=== PATIENT | male | born 1960 | race Caucasian/White ===

== ENCOUNTER 2018-07-22 19:00 | Emergency (ER) | payer BC ==
--- NOTE | 2018-07-22 19:08 | ER Document Report ---
ED General - General Stated Complaint: WEAKNESS Time Seen by Provider: 07/22/18 19:07 Mode of Arrival: Medic Information source: Patient, Relative Cannot obtain history due to: Intoxicated - HPI Patient complains to provider of: vomiting blood Onset: Other - 58-year-old generally healthy man who presents for evaluation of vomiting coffee ground as well as dark stools over the last day. Is no way that he was previously an alcoholic and had had 2 upper GI bleeds in the past requiring admission and transfusion at outside hospitals who had 5 years been sober and after his mother a month ago began to drink heavily again. He is been binge drinking for the last week and began vomiting blood yesterday. Notes weakness nausea some abdominal pain. Denies any use of blood thinning medication or any other issues. Has not seen a doctor in some time - Related Data Allergies/Adverse Reactions: No Known Allergies Allergy (Verified 08/30/13 16:49) Past Medical History - General Information source: Patient, Relative - Social History Smoking Status: Current Every Day Smoker Smoking Education Provided: Yes Family History: Reviewed & Not Pertinent Pulmonary Medical History: Denies: Hx Tuberculosis Neurological Medical History: Denies: Hx Seizures GI Medical History: Reports: Hx Gastritis, Hx Gastroesophageal Reflux Disease, Hx Pancreatitis Psychiatric Medical History: Reports: Hx Anxiety, Hx Bipolar Disorder, Hx Depression, Hx Post Traumatic Stress Disorder Past Surgical History: Reports: Hx Orthopedic Surgery - Left knee x 2 - Immunizations Hx Diphtheria, Pertussis, Tetanus Vaccination: Yes - 05/14/12 Review of Systems - Review of Systems -: Yes All other systems reviewed and negative Physical Exam - Vital signs Vitals: Temp Pulse BP Pulse Ox 98.6 F 96 140/91 H 98 07/22/18 19:09 07/22/18 19:09 07/22/18 19:09 07/22/18 19:09 Interpretation: Normal - General General appearance: Anxious In distress: Moderate - HEENT Head: Normocephalic Eyes: Normal Conjunctiva: Normal Cornea: Normal Extraocular movements intact: Yes Eyelashes: Normal Pupils: PERRL - Respiratory Respiratory status: No respiratory distress Chest status: Nontender Breath sounds: Normal Chest palpation: Normal - Cardiovascular Rhythm: Regular Heart sounds: Normal auscultation Murmur: No - Abdominal Inspection: Other - Diffuse tenderness, no obvious caput medusa Bowel sounds: Normal - Rectal Stool: Heme positive, Black Hemorrhoids: None - Back Back: Normal - Extremities General upper extremity: Normal inspection, Nontender, Normal color, Normal ROM , Normal temperature General lower extremity: Normal inspection, Nontender, Normal color, Normal ROM , Normal temperature, Normal weight bearing. No: Christine's sign - Neurological Neuro grossly intact: Yes Cognition: Normal Orientation: AAOx4 Mason Coma Scale Eye Opening: Spontaneous Marlo Coma Scale Verbal: Oriented Mason Coma Scale Motor: Obeys Commands Mason Coma Scale Total: 15 Speech: Normal Cranial nerves: Normal Motor strength normal: LUE, RUE, LLE, RLE - Psychological Associated symptoms: Other - Obviously intoxicated Course - Re-evaluation Re-evalutation: 07/22/18 22:14 Here is a 58-year-old male who presents for evaluation of melanotic stools and hematemesis. In the past she had had episodes of GI bleeds never requiring transfusion in the past however did require transfer for endoscopy. He notes that his been drinking for the last week. On examination he is covered in obviously coffee ground emesis which is heme positive as well as melanotic stool caking his undergarment. His heart rate is around 100, his blood pressure is in the normal range. He is obviously intoxicated but otherwise is overall well-appearing. Because I do have a concern for this gentleman having an upper GI bleed we will initiate broad evaluation and management including administration of Protonix bolus and infusion, administration of octreotide, administration of 1 L of normal saline, type and screen CBC CMP alcohol level. Patient's H&H is relatively unchanged from the previous level. Did speak to he and his about the severity of his illness. Patient's alcohol level is greater than 400. Patient has stopped vomiting and having any active episodes of emesis in the emergency department. His abdominal examination is benign. His chemistry is relatively reassuring. His BUN/creatinine ratio is relatively normal. I do have a concern however that this could represent alcoholic gastritis or serious upper GI bleed given that he does have melena as well as coffee-ground emesis. Contacted [facility] physician Dr. Oliva. Dr. Oliva is agreed to evaluate this patient in transfer does note that he is stable at this time with which I agree however we are limited and that we have no gastroenterology coverage this evening or tomorrow. Because there is no gastroenterology coverage for possible intervention in the case of any worsening upper GI bleed believe that this patient would benefit from transport at this time. We will plan for this patient undergo transport to [facility] for evaluation by gastroenterology for his upper and lower GI bleed. We will continue to monitor in emergency department until he is appropriately transition transitioned. We will plan for repeat labs in the morning for assessment of his bleeding. We will plan for the administration of fluids. - Vital Signs Vital signs: Temp Pulse Resp BP Pulse Ox 98.6 F 96 24 H 116/85 93 07/22/18 19:09 07/22/18 19:09 07/22/18 21:00 07/22/18 21:01 07/22/18 21:01 - Laboratory Result Diagrams: 07/22/18 19:22 07/22/18 19:22 Laboratory results interpreted by me: 07/22/18 07/22/18 07/22/18 19:22 19:22 20:21 WBC 14.8 H MCV 78 L MCH 26.0 L RDW 18.3 H Seg Neutrophils % 81.9 H Lymphocytes % 12.5 L Absolute Neutrophils 12.1 H VBG pH 7.46 H Sodium 145.3 H Anion Gap 20 H Creatine Kinase 337 H Serum Alcohol 430 H* Discharge - Discharge Clinical Impression: GI bleed Qualifiers: GI bleed type/associated pathology: unspecified gastrointestinal hemorrhage type Qualified Code(s): K92.2 - Gastrointestinal hemorrhage, unspecified Alcoholic gastritis Qualifiers: Chronicity: unspecified Gastritis bleeding: with bleeding Qualified Code(s): K29.21 - Alcoholic gastritis with bleeding Vomiting Qualifiers: Vomiting type: unspecified Vomiting Intractability: unspecified Nausea presence : unspecified Qualified Code(s): R11.10 - Vomiting, unspecified Condition: Stable Disposition: [facility]
[2018-07-22] MEDS ORDERED: PANTOPRAZOLE SODIUM 40 MG VIAL IV ONE (19:39)
[2018-07-22] MEDS ORDERED: OCTREOTIDE ACETATE INJ/PF 100 MCG/1 ML SDV IV ONE (19:40)
[2018-07-22] MEDS ORDERED: NORMAL SALINE 1000 ML 1,000 ML IV ONE (19:40)
[2018-07-22 19:58] LABS: ABSOLUTE LYMPHOCYTES (AUTO) 1.8 10^3/uL (0.5-4.7); ABSOLUTE MONOCYTES (AUTO) 0.8 10^3/uL (0.1-1.4); ABSOLUTE NEUT (AUTO) 12.1 10^3/uL (1.7-8.2); BASOPHILS % (AUTO) 0.2 % (0-2); EOSINOPHILS % (AUTO) 0.1 % (0-6); HEMATOCRIT 42.7 % (37.9-51.0); HEMOGLOBIN 14.2 g/dL (13.5-17.0); LYMPHOCYTES % (AUTO) 12.5 % (13-45); MEAN CORPUSCULAR HGB CONC 33.3 g/dL (32.0-36.0); MEAN CORPUSCULAR VOLUME 78 fl (80-97); MONOCYTES % (AUTO) 5.3 % (3-13); PLATELET COUNT 367 10^3/uL (150-450); RED BLOOD COUNT 5.47 10^6/uL (4.35-5.55); RED CELL DISTRIBUTION WIDTH 18.3 % (11.5-14.0); SEGMENTED NEUTROPHILS % (AUTO) 81.9 % (42-78); TOTAL CELLS COUNTED % (AUTO) 100 %; WHITE BLOOD COUNT 14.8 10^3/uL (4.0-10.5)
[2018-07-22 19:59] LABS: INTERNATIONAL RATION (INR) 0.89; PROTHROMBIN TIME 12.5 SEC (11.4-15.4)
[2018-07-22 20:00] LABS: PARTIAL THROMBOPLASTIN TIME 33.4 SEC (23.5-35.8)
[2018-07-22 20:11] LABS: ALANINE AMINOTRANSFERASE 33 U/L (21-72); ALBUMIN 4.3 g/dL (3.5-5.0); ALKALINE PHOSPHATASE 75 U/L (38-126); ASPARTATE AMINO TRANSFERASE 43 U/L (17-59); BILIRUBIN,DIRECT 0.2 mg/dL (0.0-0.4); BILIRUBIN,TOTAL 0.4 mg/dL (0.2-1.3); BLOOD UREA NITROGEN 8 mg/dL (7-20); CALCIUM 8.7 mg/dL (8.4-10.2); CREATINE KINASE 337 U/L (55-170); GLUCOSE 105 mg/dL (75-110); LIPASE 256.2 U/L (23-300); TOTAL PROTEIN 7.3 g/dL (6.3-8.2)
--- NOTE | 2018-07-22 20:13 | RADIOLOGY REPORT (SQ) ---
EXAM DESCRIPTION: CHEST SINGLE VIEW COMPLETED DATE/TIME: 07/22/2018 8:05 pm REASON FOR STUDY: aspiration concern COMPARISON: None. EXAM PARAMETERS: NUMBER OF VIEWS: One view. TECHNIQUE: Single frontal radiographic view of the chest acquired. RADIATION DOSE: NA LIMITATIONS: None. FINDINGS: LUNGS AND PLEURA: No opacities, masses or pneumothorax. No pleural effusion. MEDIASTINUM AND HILAR STRUCTURES: No masses. Contour normal. HEART AND VASCULAR STRUCTURES: Heart normal in size. Normal vasculature. BONES: No acute findings. HARDWARE: None in the chest. OTHER: No other significant finding. IMPRESSION: NO ACUTE RADIOGRAPHIC FINDING IN THE CHEST. TECHNICAL DOCUMENTATION: JOB ID: [id number] [employer]- All Rights Reserved Reading location - IP/workstation name: [email or web address]
[2018-07-22 20:16] LABS: CARBON DIOXIDE 24 mmol/L (22-30); CHLORIDE 101 mmol/L (98-107); SODIUM 145.3 mmol/L (137-145)
[2018-07-22 20:20] LABS: ANION GAP 20 (5-19)
[2018-07-22 20:22] LABS: ALCOHOL 430 mg/dL (NONE DETECTED)
[2018-07-22 20:23] LABS: NT PRO BNP 22 pg/mL (5-900)
[2018-07-22 20:24] LABS: TROPONIN I < 0.012 ng/mL
[2018-07-22 20:25] LABS: VENOUS BLOOD BASE EXCESS 4.4 mmol/L; VENOUS BLOOD HCO3 28.6 mmol/L (20-32); VENOUS BLOOD PCO2 40.7 mmHg (35-63); VENOUS BLOOD PH 7.46 (7.30-7.42)
[2018-07-22] MEDS ORDERED: RINGERS SOLUTION,LACTATED 1,000 ML IV PRN (22:23)
[2018-07-23 01:35] VITALS: BP 134/88
[2018-07-23] MEDS ORDERED: LORAZEPAM INJ 2 MG/1 ML VIAL IV ONE (01:35)
== END 2018-07-23 01:40 | disposition short-term general hospital (02) ==
LOC: ER 19:00
DX: K92.2 Gastrointestinal hemorrhage, unspecified (principal); K29.21 Alcoholic gastritis with bleeding; R53.1 Weakness; F17.200 Nicotine dependence, unspecified, uncomplicated
CPT/HCPCS: 99285; 96375; 96365; 96366; 86900; 86901; 36415; 86850; 80307; 82550; 83690; 85025; 85610; 85730; 82272; 80053; 84484; 82803; 83880; 71045; J2060; J2354; S0164; J7030; J7120

== ENCOUNTER 2018-09-07 17:57 | Emergency (ER) | payer BC ==
[2018-09-07] MEDS ORDERED: THIAMINE HCL 100 MG, FOLIC ACID 1 MG in NORMAL SALINE 250 ML IV ONE (18:42)
[2018-09-07] MEDS ORDERED: DIAZEPAM INJ 10 MG/2 ML DISP.SYRIN IV ONE (18:54)
[2018-09-07] MEDS ORDERED: ONDANSETRON HCL INJ/PF 4 MG/2 ML SDV IV ONE (18:54)
[2018-09-07] MEDS ORDERED: PANTOPRAZOLE SODIUM 40 MG VIAL IV ONE (18:59)
--- NOTE | 2018-09-07 19:02 | ER Document Report ---
ED General - General Chief Complaint: Alcohol Withdrawl Stated Complaint: ALCOHOL WITHDRAWAL Time Seen by Provider: 09/07/18 18:42 Mode of Arrival: Ambulatory Information source: Patient, Relative Notes: 58-year-old male with history of alcohol abuse, gastritis, colitis, pancreatitis presents with complaint of nausea, tremors. Patient states that he went on a 1 week drinking binge. He states that he was drinking 8-10 beers per day. He states his last drink was 2 days prior to arrival. He states he began feeling shaky, nauseous yesterday. He denies any seizure-like activity, vomiting, chest pain, shortness of breath, visual or auditory, tactile hallucination. Patient was accepted and set up to go to an alcohol rehabilitation center in [place] today but he states that he did not feel like he could navigate through the [facility] although they were told he would have a wheelchair meet him and take him to the gait. is at the bedside and states that the patient can still go to rehab. Patient is alert and oriented x4. Patient denies any black or bloody stool, hemoptysis. TRAVEL OUTSIDE OF THE [place] IN LAST 30 DAYS: No - HPI Onset: Other Quality of pain: No pain Associated symptoms: Diarrhea, Nausea. denies: Chest pain, Fever, Headache, Vomiting, Shortness of breath, Sore throat, Weakness Exacerbated by: Denies Relieved by: Denies Similar symptoms previously: Yes Recently seen / treated by doctor: Yes - Related Data Allergies/Adverse Reactions: No Known Allergies Allergy (Verified 08/30/13 16:49) Past Medical History - General Information source: Patient - Social History Smoking Status: Current Every Day Smoker Cigarette use (# per day): Yes - 5 Smoking Education Provided: Yes - Smoking cessation counseling was provided for 4 minutes at the bedside Frequency of alcohol use: Heavy Drug Abuse: None Lives with: Spouse/Significant other Family History: Reviewed & Not Pertinent Patient has suicidal ideation: No Patient has homicidal ideation: No Pulmonary Medical History: Denies: Hx Tuberculosis Neurological Medical History: Denies: Hx Seizures Renal/ Medical History: Denies: Hx Peritoneal Dialysis GI Medical History: Reports: Hx Gastritis, Hx Gastroesophageal Reflux Disease, H x Pancreatitis Psychiatric Medical History: Reports: Hx Anxiety, Hx Bipolar Disorder, Hx Depression, Hx Post Traumatic Stress Disorder Past Surgical History: Reports: Hx Orthopedic Surgery - Left knee x 2 - Immunizations Hx Diphtheria, Pertussis, Tetanus Vaccination: Yes - 05/14/12 Review of Systems - Review of Systems Notes: REVIEW OF SYSTEMS: CONSTITUTIONAL : Denies fever, chills, or sweats. Denies recent illness. Denies weight loss, recent hospitalizations. EENT: Denies visual changes, eye pain. Denies sore throat, oral lesions, d ifficulty swallowing. CARDIOVASCULAR: Denies chest pain. Denies palpitations. Denies lower extremity edema. RESPIRATORY: Denies cough. Denies shortness of breath, wheezing. GASTROINTESTINAL: Denies abdominal pain or distention. Denies vomiting, or diarrhea. Denies blood in vomitus, stools, or per rectum. Denies black, tarry stools. Denies constipation. GENITOURINARY: Denies difficulty urinating, painful urination, frequency, blood in urine, testicular pain or penile discharge. MUSCULOSKELETAL: Denies back or neck pain or stiffness. Denies joint pain or swelling. SKIN: Denies rash, lesions or sores. HEMATOLOGIC : Denies easy bruising or bleeding. LYMPHATIC: Denies swollen glands. NEUROLOGICAL: Denies confusion or altered mental status. Denies loss of consciousness. Denies dizziness or lightheadedness. Denies headache. Denies weakness or paralysis. Denies problems difficulty with ambulation, slurred speech. Denies sensory loss, numbness, or tingling. Denies seizures. PSYCHIATRIC: Denies anxiety or stress. Denies depression, suicidal ideation, or Physical Exam - Vital signs Vitals: Temp 98.0 F 09/07/18 18:46 - Notes Notes: PHYSICAL EXAMINATION: GENERAL: Well-appearing, well-nourished and in no acute distress. HEAD: Atraumatic, normocephalic. EYES: Pupils equal round and reactive to light, extraocular movements intact, sclera anicteric, conjunctiva are normal. No nystagmus ENT: Nares patent, oropharynx clear without exudates. Moist mucous membranes. NECK: Normal range of motion, supple without lymphadenopathy LUNGS: Breath sounds clear to auscultation bilaterally and equal. No wheezes rales or rhonchi. HEART: Tachycardic, regular rhythm without murmurs ABDOMEN: Soft, nontender, nondistended abdomen. No guarding, no rebound. No masses appreciated. Musculoskeletal: Normal range of motion, no pitting or edema. No cyanosis. NEUROLOGICAL: Cranial nerves grossly intact. Normal speech, normal gait. Normal sensory, motor exams. Alert and oriented x3. Mild tremors of the actual upper extremities bilaterally PSYCH: Normal mood, normal affect. SKIN: Warm, Dry, normal turgor, no rashes or lesions noted. Course - Re-evaluation Re-evalutation: Laboratory 09/07/18 09/07/18 09/07/18 18:40 18:40 19:25 WBC 11.7 H RBC 4.72 Hgb 11.8 L Hct 36.6 L MCV 78 L MCH 25.0 L MCHC 32.3 RDW 19.7 H Plt Count 184 Total Counted 100 Seg Neutrophils % Not Reportable Seg Neuts % (Manual) 88 H Lymphocytes % Not Reportable Lymphocytes % (Manual) 8 L Atypical Lymphs % 1 Monocytes % Not Reportable Monocytes % (Manual) 3 Eosinophils % Not Reportable Eosinophils % (Manual) 0 Basophils % Not Reportable Basophils % (Manual) 0 Absolute Neutrophils Not Reportable Abs Neuts (Manual) 10.3 H Absolute Lymphocytes Not Reportable Abs Lymphs (Manual) 1.1 Absolute Monocytes Not Reportable Abs Monocytes (Manual) 0.4 Absolute Eosinophils Not Reportable Absolute Eos (Manual) 0.0 Absolute Basophils Not Reportable Abs Basophils (Manual) 0.0 Platelet Comment ADEQUATE Anisocytosis 2+ Microcytosis SLIGHT Sodium 138.5 Potassium 4.1 Chloride 100 Carbon Dioxide 22 Anion Gap 17 BUN 12 Creatinine 0.65 Est GFR ( Amer) > 60 Est GFR (Non-Af Amer) > 60 Glucose 128 H Calcium 9.0 Total Bilirubin 0.7 Direct Bilirubin 0.3 Neonat Total Bilirubin Not Reportable Neonat Direct Bilirubin Not Reportable Neonat Indirect Bili Not Reportable AST 204 H ALT 134 H Alkaline Phosphatase 206 H Creatine Kinase 327 H Total Protein 7.7 Albumin 4.7 Lipase 449.4 H Urine Color YELLOW Urine Appearance SLIGHTLY-CLOUDY Urine pH 5.0 Ur Specific [place] 1.023 Urine Protein >=500 H Urine Glucose (UA) NEGATIVE Urine Ketones 20 H Urine Blood LARGE H Urine Nitrite NEGATIVE Urine Bilirubin NEGATIVE Urine Urobilinogen 2.0 H Ur Leukocyte Esterase NEGATIVE Urine WBC (Auto) 1 Urine RBC (Auto) 42 Urine Mucus (Auto) OCC Urine Ascorbic Acid NEGATIVE Salicylates < 1.0 L Urine Opiates Screen Urine Methadone Screen Acetaminophen < 10 L Ur Barbiturates Screen Ur Phencyclidine Scrn Ur Amphetamines Screen U Benzodiazepines Scrn Urine Cocaine Screen U Marijuana (THC) Screen Serum Alcohol 18 09/07/18 19:25 WBC RBC Hgb Hct MCV MCH MCHC RDW Plt Count Total Counted Seg Neutrophils % Seg Neuts % (Manual) Lymphocytes % Lymphocytes % (Manual) Atypical Lymphs % Monocytes % Monocytes % (Manual) Eosinophils % Eosinophils % (Manual) Basophils % Basophils % (Manual) Absolute Neutrophils Abs Neuts (Manual) Absolute Lymphocytes Abs Lymphs (Manual) Absolute Monocytes Abs Monocytes (Manual) Absolute Eosinophils Absolute Eos (Manual) Absolute Basophils Abs Basophils (Manual) Platelet Comment Anisocytosis Microcytosis Sodium Potassium Chloride Carbon Dioxide Anion Gap BUN Creatinine Est GFR ( Amer) Est GFR (Non-Af Amer) Glucose Calcium Total Bilirubin Direct Bilirubin Neonat Total Bilirubin Neonat Direct Bilirubin Neonat Indirect Bili AST ALT Alkaline Phosphatase Creatine Kinase Total Protein Albumin Lipase Urine Color Urine Appearance Urine pH Ur Specific [place] Urine Protein Urine Glucose (UA) Urine Ketones Urine Blood Urine Nitrite Urine Bilirubin Urine Urobilinogen Ur Leukocyte Esterase Urine WBC (Auto) Urine RBC (Auto) Urine Mucus (Auto) Urine Ascorbic Acid Salicylates Urine Opiates Screen UNCONFIRMED POSITIVE Urine Methadone Screen NEGATIVE Acetaminophen Ur Barbiturates Screen NEGATIVE Ur Phencyclidine Scrn NEGATIVE Ur Amphetamines Screen NEGATIVE U Benzodiazepines Scrn NEGATIVE Urine Cocaine Screen NEGATIVE U Marijuana (THC) Screen NEGATIVE Serum Alcohol Temp Pulse Resp BP Pulse Ox 98.0 F 103 H 09/07/18 18:46 09/07/18 20:54 09/07/18 19:00 58-year-old male with a history of alcohol abuse presents with concern for alcohol withdrawal. Patient states that he went on a one-week vale drinking 8-10 beers daily and his last drink was 2 days ago. Upon arrival vital signs are reviewed and patient is mildly hypertensive and tachycardic at a rate of 128. He is alert, awake denies any visual, tactile or auditory hallucinations. He is alert and oriented x4. He is in no acute distress. Previous medical records and nursing notes reviewed. Patient had a rehabilitation set up for him today but did not go to the airport where his transportation was already arranged for him. Patient did receive thiamine, folic acid, Valium, Zofran, IV fluids during his ED course. 09/07/18 21:14 Patient reevaluated. He is alert, awake and resting comfortably in bed. No longer tremulous. Heart rate has improved and is now 103. Patient has not had any episodes of vomiting, confusion, hallucinations. He is still complaining of some nausea. Reglan and Benadryl as well as additional fluids have been provided. 09/07/18 22:26 Patient reevaluated. He has no confusion, vomiting. Heart rate has improved. Nausea has improved. Patient states that he is going to rehab lab tomorrow as he was supposed to do this morning. He has showed no evidence of DTs, Warnicke's encephalopathy. Patient was discharged home with Zofran and a Librium taper. Patient was evaluated and treated as appropriate for the patient's presenting symptoms and complaint, with consideration of any critical or life threatening conditions that may be associated with their obtained history and exam as noted above. All results were discussed with patient and his . Patient provided the opportunity to ask questions, and express concerns. Patient was educated on treatments based on their presumed diagnosis as noted above. At this time we will discharge the patient with return precautions and follow-up recommendations. Verbal discharge instructions given a the bedside. Medication warnings reviewed. Patient is in agreement with this plan and has verbalized understanding of return precautions. After careful consideration I feel that that patient can be safely discharged from the emergency department, they were advised to followup with a primary care physician in 2-3 days. Dictation on this chart was performed using voice recognition software and may result in unintended grammatical, spelling, syntax or errors. 09/07/18 22:27 09/08/18 03:49 - Vital Signs Vital signs: Temp Pulse Resp BP Pulse Ox 98.8 F 112 H 20 156/94 H 99 09/08/18 00:15 09/08/18 00:15 09/08/18 00:15 09/08/18 00:15 09/08/18 00:15 - Laboratory Result Diagrams: 09/07/18 18:40 09/07/18 18:40 Laboratory results interpreted by me: 09/07/18 09/07/18 09/07/18 18:40 18:40 19:25 WBC 11.7 H Hgb 11.8 L Hct 36.6 L MCV 78 L MCH 25.0 L RDW 19.7 H Seg Neuts % (Manual) 88 H Lymphocytes % (Manual) 8 L Abs Neuts (Manual) 10.3 H Glucose 128 H AST 204 H ALT 134 H Alkaline Phosphatase 206 H Creatine Kinase 327 H Lipase 449.4 H Urine Protein >=500 H Urine Ketones 20 H Urine Blood LARGE H Urine Urobilinogen 2.0 H Salicylates < 1.0 L Acetaminophen < 10 L Critical Care Note - Critical Care Note Total time excluding time spent on procedures (mins): 40 - Minutes of critical care time spent in direct contact evaluating and reevaluating the patient, carmen ating symptoms, reviewing labs and studies and speaking with family and consultants excluding any procedures Discharge - Discharge Clinical Impression: Alcohol abuse, Nausea, Elevated blood pressure reading Condition: Good Disposition: HOME, SELF-CARE Instructions: Alcohol Withdrawl ([facility]), Chronic Alcoholism ([facility]) Additional Instructions: You have been sent home on medication to help withdraw from alcohol. You should only start taking this medication and discontinue alcohol if you are seroius about quitting alcohol. This will not completely remove all your symptoms from withdrawal should make it so that your symptoms are more manageable. You need to return to the emergency room immediately if you pass out, or vomiting so severely your unable to keep anything down, start hallucinate, or have any other symptoms that are of concern to you. You need to go to an inpatient program and should speak with your primary care doctor regarding these resources. How to take the librium to come off alcohol. DO NOT DRINK ANY ALCOHOL WHILE USING THIS MEDICATION Day 1-3: 75mg PO TID Day 4-6: 50mg PO TID Day 7-9: 25mg PO TID Day 10-12: 25mg PO BID Day 13-15: 25mg PO daily PRN Please go to the rehab center that has already accepted you in [facility]. This is an opportunity that you cannot pass up if you are serious about quitting your alcohol addiction. Prescriptions: Ondansetron [Zofran Odt 4 mg Tablet] 1 - 2 tab PO Q4H PRN #15 tab.rapdis PRN Reason: For Nausea/Vomiting Forms: Elevated Blood Pressure
[2018-09-07 19:03] LABS: HEMATOCRIT 36.6 % (37.9-51.0); HEMOGLOBIN 11.8 g/dL (13.5-17.0); MEAN CORPUSCULAR HGB CONC 32.3 g/dL (32.0-36.0); MEAN CORPUSCULAR VOLUME 78 fl (80-97); PLATELET COUNT 184 10^3/uL (150-450); RED BLOOD COUNT 4.72 10^6/uL (4.35-5.55); RED CELL DISTRIBUTION WIDTH 19.7 % (11.5-14.0); WHITE BLOOD COUNT 11.7 10^3/uL (4.0-10.5)
[2018-09-07 19:25] LABS: ABSOLUTE LYMPHOCYTES# (MANUAL) 1.1 10^3/uL (0.5-4.7); ABSOLUTE MONOCYTES # (MANUAL) 0.4 10^3/uL (0.1-1.4); ABSOLUTE NEUTROPHILS# (MANUAL) 10.3 10^3/uL (1.7-8.2); BASOPHILS % (MANUAL) 0 % (0-2); EOSINOPHILS % (MANUAL) 0 % (0-6); LYMPHOCYTES % (MANUAL) 8 % (13-45); MONOCYTES % (MANUAL) 3 % (3-13); SEGMENTED NEUTROPHILS % (MAN) 88 % (42-78); TOTAL CELLS COUNTED 100
[2018-09-07 19:27] LABS: ALANINE AMINOTRANSFERASE 134 U/L (21-72); ALBUMIN 4.7 g/dL (3.5-5.0); ALCOHOL 18 mg/dL (NONE DETECTED); ALKALINE PHOSPHATASE 206 U/L (38-126); ANION GAP 17 (5-19); ANISOCYTOSIS 2+; ASPARTATE AMINO TRANSFERASE 204 U/L (17-59); BILIRUBIN,DIRECT 0.3 mg/dL (0.0-0.4); BILIRUBIN,TOTAL 0.7 mg/dL (0.2-1.3); BLOOD UREA NITROGEN 12 mg/dL (7-20); CARBON DIOXIDE 22 mmol/L (22-30); CHLORIDE 100 mmol/L (98-107); CREATINE KINASE 327 U/L (55-170); GLUCOSE 128 mg/dL (75-110); LIPASE 449.4 U/L (23-300); PLATELET COMMENT ADEQUATE; POTASSIUM 4.1 mmol/L (3.6-5.0); SODIUM 138.5 mmol/L (137-145); TOTAL PROTEIN 7.7 g/dL (6.3-8.2)
[2018-09-07 19:30] LABS: ACETAMINOPHEN < 10 ug/mL (10-30); SALICYLATE < 1.0 mg/dL (2.0-20.0)
--- NOTE | 2018-09-07 19:34 | EKG REPORT ---
SEVERITY:- OTHERWISE NORMAL ECG - SINUS TACHYCARDIA : Confirmed by: Roxy Bang MD 07-Sep-2018 19:33:45
[2018-09-07 19:38] LABS: APPEARANCE,URINE SLIGHTLY-CLOUDY; BILIRUBIN,URINE NEGATIVE (NEGATIVE); COLOR,URINE YELLOW; GLUCOSE, URINE NEGATIVE (NEGATIVE); KETONES,URINE 20 mg/dL (NEGATIVE); LEUKOCYTE ESTERASE,URINE NEGATIVE (NEGATIVE); NITRITE,URINE NEGATIVE (NEGATIVE); PROTEIN,URINE >=500 mg/dL (NEGATIVE); URINE SPECIFIC GRAVITY 1.023
[2018-09-07 19:58] LABS: URINE AMPHETAMINES SCREEN NEGATIVE; URINE BARBITURATES SCREEN NEGATIVE; URINE BENZODIAZEPINES SCREEN NEGATIVE; URINE COCAINE SCREEN NEGATIVE; URINE MARIJUANA (THC) SCREEN NEGATIVE; URINE METHADONE SCREEN NEGATIVE; URINE PHENCYCLIDINE SCREEN NEGATIVE
[2018-09-07] MEDS ORDERED: DIAZEPAM 5 MG TABLET PO ONE ×2 (20:19→23:25)
[2018-09-07] MEDS ORDERED: DIPHENHYDRAMINE HCL 50 MG/ML VIAL IV ONE (21:14)
[2018-09-07] MEDS ORDERED: METOCLOPRAMIDE HCL INJ/PF 10 MG/2 ML SDV IV ONE (21:14)
[2018-09-07] MEDS ORDERED: FAMOTIDINE INJ/PF 20 MG/2 ML SDV IV ONE (21:15)
[2018-09-08 01:10] VITALS: BP 156/94
== END 2018-09-08 00:15 | disposition home or self-care (01) ==
LOC: ER 17:57
DX: F10.10 Alcohol abuse, uncomplicated (principal); R11.0 Nausea; R03.0 Elevated blood-pressure reading, without diagnosis of hypertension; R25.1 Tremor, unspecified; K29.70 Gastritis, unspecified, without bleeding; R19.7 Diarrhea, unspecified; F17.210 Nicotine dependence, cigarettes, uncomplicated
CPT/HCPCS: 93005; 99285; 96375; 96365; 36415; 80307 ×4; 82550; 83690; 85025; 80053; 81001; 93010; J3360; J1200; J3490; J2765; S0164; J3411; J2405; J7050; S0028

== ENCOUNTER 2018-10-07 15:12 | Emergency (ER) | payer BC ==
[2018-10-07] MEDS ORDERED: NORMAL SALINE 1000 ML 1,000 ML IV ONE (15:24)
[2018-10-07] MEDS ORDERED: PANTOPRAZOLE SODIUM 40 MG VIAL IV ONE (15:30)
[2018-10-07 15:42] LABS: INTERNATIONAL RATION (INR) 0.98; PARTIAL THROMBOPLASTIN TIME 34.4 SEC (23.5-35.8); PROTHROMBIN TIME 13.4 SEC (11.4-15.4)
[2018-10-07 15:51] LABS: ALANINE AMINOTRANSFERASE 31 U/L (21-72); ALBUMIN 4.4 g/dL (3.5-5.0); ALKALINE PHOSPHATASE 68 U/L (38-126); ANION GAP 17 (5-19); ASPARTATE AMINO TRANSFERASE 57 U/L (17-59); BILIRUBIN,DIRECT 0.1 mg/dL (0.0-0.4); BILIRUBIN,TOTAL 0.5 mg/dL (0.2-1.3); BLOOD UREA NITROGEN 23 mg/dL (7-20); CALCIUM 8.8 mg/dL (8.4-10.2); CARBON DIOXIDE 28 mmol/L (22-30); CHLORIDE 88 mmol/L (98-107); GLUCOSE 136 mg/dL (75-110); POTASSIUM 4.1 mmol/L (3.6-5.0); SODIUM 133.2 mmol/L (137-145); TOTAL PROTEIN 7.2 g/dL (6.3-8.2)
[2018-10-07 16:14] LABS: MEAN CORPUSCULAR HEMOGLOBIN 23.9 pg (27.0-33.4); MEAN CORPUSCULAR HGB CONC 32.2 g/dL (32.0-36.0); PLATELET COUNT 135 10^3/uL (150-450); RED BLOOD COUNT 3.24 10^6/uL (4.35-5.55); RED CELL DISTRIBUTION WIDTH 20.2 % (11.5-14.0); WHITE BLOOD COUNT 10.7 10^3/uL (4.0-10.5)
[2018-10-07 16:16] LABS: MEAN CORPUSCULAR VOLUME 74 fl (80-97)
[2018-10-07 16:26] LABS: ABSOLUTE LYMPHOCYTES# (MANUAL) 0.4 10^3/uL (0.5-4.7); ABSOLUTE MONOCYTES # (MANUAL) 0.3 10^3/uL (0.1-1.4); BAND NEUTROPHILS % (MANUAL) 1 % (3-5); BASOPHILS % (MANUAL) 0 % (0-2); EOSINOPHILS % (MANUAL) 0 % (0-6); LYMPHOCYTES % (MANUAL) 3 % (13-45); MONOCYTES % (MANUAL) 3 % (3-13); SEGMENTED NEUTROPHILS % (MAN) 92 % (42-78); TOTAL CELLS COUNTED 100
[2018-10-07 16:28] LABS: HYPOCHROMASIA SLIGHT; OVALOCYTES SLIGHT; POIKILOCYTOSIS SLIGHT
[2018-10-07 16:29] LABS: ANISOCYTOSIS 2+; HEMOGLOBIN 7.7 g/dL (13.5-17.0); PLATELET COMMENT ADEQUATE
[2018-10-07] MEDS ORDERED: NORMAL SALINE 250 ML IV PRN ×2 (16:31→21:57)
[2018-10-07] MEDS ORDERED: MORPHINE SULFATE 10 MG/ML INJ IV ONE (17:06)
[2018-10-07] MEDS ORDERED: ONDANSETRON HCL INJ/PF 4 MG/2 ML SDV IV ONE ×2 (17:07→21:57)
--- NOTE | 2018-10-07 17:13 | ER Document Report ---
ED General - General Chief Complaint: Bloody Stools Stated Complaint: BLOODY STOOL Time Seen by Provider: 10/07/18 15:20 TRAVEL OUTSIDE OF THE U.[place]. IN LAST 30 DAYS: No - HPI Notes: Patient presents to the emergency department for evaluation of hematemesis and melena. He states this started in the hotel lobby concierge hours of today. He has a pressure type sensation in his upper abdomen. He does have a history of a bleeding ulcer. He states he has been taking his medications as prescribed. - Related Data Allergies/Adverse Reactions: No Known Allergies Allergy (Verified 08/30/13 16:49) Past Medical History - Social History Smoking Status: Former Smoker Frequency of alcohol use: Heavy - Patient states he drinks 5 24 ounce beers daily. Last drink was 3 days ago. Family History: Reviewed & Not Pertinent Patient has suicidal ideation: No Patient has homicidal ideation: No Pulmonary Medical History: Denies: Hx Tuberculosis Neurological Medical History: Denies: Hx Seizures Renal/ Medical History: Denies: Hx Peritoneal Dialysis GI Medical History: Reports: Hx Gastritis, Hx Gastroesophageal Reflux Disease, Hx Pancreatitis Psychiatric Medical History: Reports: Hx Anxiety, Hx Bipolar Disorder, Hx Depression, Hx Post Traumatic Stress Disorder Past Surgical History: Reports: Hx Orthopedic Surgery - Left knee x 2 - Immunizations Hx Diphtheria, Pertussis, Tetanus Vaccination: Yes - 05/14/12 Review of Systems - Review of Systems Constitutional: No symptoms reported EENT: No symptoms reported Respiratory: No symptoms reported Gastrointestinal: See HPI Musculoskeletal: No symptoms reported Hematologic/Lymphatic: No symptoms reported Physical Exam - Vital signs Vitals: Temp Pulse Resp BP 99.1 F 109 H 18 113/74 10/07/18 15:32 10/07/18 15:32 10/07/18 15:32 10/07/18 15:32 Interpretation: Tachycardic - Notes Notes: Patient is pale but alert, no acute distress. Head is normocephalic and atraumatic, pupils are equal round reactive to light. Conjunctival pallor is noted. Heart is regular rate and rhythm, lungs are clear to auscultation bilaterally. Abdomen is soft with moderate epigastric tenderness, no rebound or guarding. No peritoneal signs. Extremities without cyanosis or clubbing, skin is warm and dry. Course - Re-evaluation Re-evalutation: 10/07/18 18:34 Patient presents emergency department for evaluation. He did have active hematemesis while I was present in the room. It is maroon in nature. His heart rate remained elevated despite IV fluids but blood pressures remained stable. Hemoglobin came back at 7.7. Type and cross for transfusion orders for 2 units were placed. Patient was given nausea medication. He continued to have a few episodes of maroon hematemesis. Patient is actively bleeding at this time, he is not stable to stay at an institution without gastroenterology. Given Protonix, placed on Protonix drip. I spoke to Dr. Cowan, physician on-call at [facility], who will accept the patient for further care. He will be cared for by Dr. Miramontes. 10/07/18 18:38 10/07/18 19:39 [address] spoke again [address] cowan. 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 He asked that I perform a noncontrast CT sca n of the chest to rule this out. There is no evidence of this on CT. He does have distal esophageal thickening. Patient remains vitally stable with the exception of some tachycardia. It was reported to me that the patient was self inducing this vomiting while here. I did discuss with the patient the extreme danger to his safety that he was causing. He voiced understanding to this. - Vital Signs Vital signs: Temp Pulse Resp BP Pulse Ox 99.2 F 115 H 15 117/77 97 10/07/18 19:10 10/07/18 18:36 10/07/18 18:36 10/07/18 18:36 10/07/18 18:36 - Laboratory Result Diagrams: 10/07/18 16:00 10/07/18 14:35 Laboratory results interpreted by me: 10/07/18 10/07/18 10/07/18 14:35 16:00 16:36 WBC 10.7 H RBC 3.24 L Hgb 7.7 L Hct 24.0 L MCV 74 L D MCH 23.9 L RDW 20.2 H Plt Count 135 L Seg Neuts % (Manual) 92 H Band Neutrophils % 1 L Lymphocytes % (Manual) 3 L Abs Neuts (Manual) 10.0 H Abs Lymphs (Manual) 0.4 L Sodium 133.2 L Chloride 88 L BUN 23 H Glucose 136 H Lipase 488.0 H Urine Protein Urine Blood Crossmatch See Detail 10/07/18 17:19 WBC RBC Hgb Hct MCV MCH RDW Plt Count Seg Neuts % (Manual) Band Neutrophils % Lymphocytes % (Manual) Abs Neuts (Manual) Abs Lymphs (Manual) Sodium Chloride BUN Glucose Lipase Urine Protein 30 H Urine Blood SMALL H Crossmatch Critical Care Note - Critical Care Note Total time excluding time spent on procedures (mins): 30 Discharge - Discharge Clinical Impression: Upper GI bleed, Hematemesis Condition: Fair Disposition: [facility] Admitting Provider:
[2018-10-07 17:38] LABS: AMORPHOUS SEDIMENT,URINE TRACE /HPF; APPEARANCE,URINE SLIGHTLY-CLOUDY; BILIRUBIN,URINE NEGATIVE (NEGATIVE); COLOR,URINE YELLOW; GLUCOSE, URINE NEGATIVE (NEGATIVE); KETONES,URINE NEGATIVE (NEGATIVE); LEUKOCYTE ESTERASE,URINE NEGATIVE (NEGATIVE); NITRITE,URINE NEGATIVE (NEGATIVE); PROTEIN,URINE 30 mg/dL (NEGATIVE); URINE SPECIFIC GRAVITY 1.016; UROBILINOGEN,URINE NEGATIVE mg/dL (<2.0)
[2018-10-07] MEDS ORDERED: PANTOPRAZOLE SODIUM 40 MG VIAL IV PRN (17:45)
[2018-10-07] MEDS ORDERED: PROMETHAZINE HCL INJ 25 MG/1 ML VIAL IV ONE (18:33)
--- NOTE | 2018-10-07 19:13 | RADIOLOGY REPORT (SQ) ---
EXAM DESCRIPTION: CT CHEST WITHOUT COMPLETED DATE/TIME: 10/07/2018 6:58 pm REASON FOR STUDY: Eval for esophageal rupture COMPARISON: None. TECHNIQUE: CT scan performed of the chest without intravenous contrast. Images reviewed with lung, soft tissue and bone windows. Reconstructed coronal and sagittal MPR images reviewed. All images st ored on PACS. All CT scanners at this facility use dose modulation, iterative reconstruction, and/or weight based d osing when appropriate to reduce radiation dose to as low as reasonably achievable (ALARA). [facility]: Dose Right [facility]: CareDose [facility]: Dose Right [facility]: Teradose 4D [facility]: [employer] RADIATION DOSE: CT Rad equipment meets quality standard of care and radiation dose reduction techniq ues were employed. CTDIvol: 14.9 mGy. DLP: 719 mGy-cm. mGy. LIMITATIONS: No technical limitations. FINDINGS: LUNGS AND PLEURA: No masses, infiltrates, or pneumothorax. No pleural effusions or pleura l calcifications. HILAR AND MEDIASTINAL STRUCTURES: No mediastinal or hilar mass. No pneumomediastinum. There is thic kening of the distal esophagus. HEART AND VASCULAR STRUCTURES: No aneurysm. No pericardial effusion. UPPER ABDOMEN: Cannot exclude some tiny gallstones. There appear to be some calcifications in the he ad of the pancreas. THYROID AND OTHER SOFT TISSUES: No masses. No adenopathy. BONES: No significant finding. HARDWARE: None in the chest. OTHER: No other significant findings. IMPRESSION: There is no evidence of esophageal rupture. There is no fluid in the mediastinum. Ther e is no pneumomediastinum. However, the distal esophagus is thickened. Possible chronic pancreatiti s. TECHNICAL DOCUMENTATION: JOB ID: [id number] Quality ID # [id number]: Final reports with documentation of one or more dose reduction techniques (e.g., Au tomated exposure control, adjustment of the mA and/or kV according to patient size, use of iterative reconstruction technique) 2010 [employer]- All Rights Reserved Reading location - IP/workstation name: [email or web address]
[2018-10-07] MEDS ORDERED: PROMETHAZINE HCL INJ 25 MG/1 ML VIAL ONE (19:18)
[2018-10-07] MEDS ORDERED: OCTREOTIDE ACETATE INJ/PF 100 MCG/1 ML SDV IV ONE (22:00)
[2018-10-07] MEDS ORDERED: NORMAL SALINE 500 ML with OCTREOTIDE ACETATE 500 MCG IV PRN ×2 (22:00)
--- NOTE | 2018-10-07 22:01 | ER Document Report ---
Doctor's Note Notes: 10/07/18 22:01 I have gone to the patient's bedside as he additionally had another large volume episode of hematemesis. The patient has now vomited a total of 1 L of bright red blood since being here in the emergency department based on direct calculation of emesis bags at the patient's bedside that are filled with blood. The patient remains tachycardic, last recorded heart rate at 120 although blood pressure remains within acceptable limits currently at 116 on 83. And a patella form was completed as this had not been previously completed by the prior provider. I did contact Naila Smith to review the gravity of the patient's clinical situation and the need for expedited transport. The patient had been previously arranged for ground transport. I do not believe this is a safe method of transport at this point for this patient. We have contacted [facility] and I am requesting immediate care transport. I also contacted our surgeon service delivery consultant Dr. Sanchez and discussed with him the gravity of the patient's situation and requested evaluation for endoscopy. Dr. Sanchez does report that this patient is extremely ill, requires referral to a facility with a formal GI physician for endoscopy. Patient has been moved to a trauma bay. His blood pressure will be obtained every 15 minutes. We are rechecking a CBC. I have ordered FFP for the patient. Unfortunately a medication error did occur earlier today the patient received a total of 160 mg of pantoprazole. Therefore no further doses of pantoprazole will be administered at this point. Patient does not have a history of esophageal varices but is a heavy drinker and will be started on octreotide infusion. The patient is critically ill. I will continue to reassess at regular intervals until he exits this facility. 10/07/18 22:17 Hemoglobin has down trended to 7 despite receiving 1 unit of packed RBCs. Patient will receive a gram of tranexamic acid followed by infusion. Patient's blood pressure remains within acceptable ranges currently 138 on 87 although he remains tachycardic at 110. Patient has been approved for air care transport. I have called to notify Naila Smith that the patient will be rapidly transported by air care. Patient family also notified. Will continue to reassess the patient until air transport has arrived. 10/07/18 22:48 Air care is no longer available due to weather. I have contacted [facility] to see if they would be able to more expeditiously provide endoscopy for this patient. However this is not appear to be a better option, [facility] has been contacted, states that they can scope the patient in the ICU setting and continues to be willing to accept the patient. Unfortunate this point I do not have any method by which to transport the patient from this hospital to [facility]. The patient has undergone RSI, first pass attempt was successful without complication. This was done with ketamine and rocuronium. Patient will remain under Versed sedation. Fentanyl boluses as needed. Mass transfusion protocol has been initiated although I will not be transfusing large quantities at this time as I do not wish to make the patient overly perfused and resulted worse bleeding. 10/07/18 23:25 Ground transfer in [place]. Patient was not having adequate sedation on Versed infusion despite infusion being increased to 10 mg/h with additional fentanyl boluses. Suspect that this is secondary to the patient's underlying alcoholism. Versed drip discontinued in favor of propofol which has achieved much better hemodynamic control as well as improved sedation. Patient is no longer hypertensive, less tachycardic. Current heart rate 111, blood pressure 108 on 78. Patient is actively receiving 2 units of FFP and 1 unit of platelets. TXA infusion, octreotide infusion ongoing. Patient has an OG tube in place, 100 cc of bright red blood has been pulled over the past 30 minutes. 10/08/18 0000 Transport has arrived, patient appropriate for transport at this time. Remains in critical condition. Critical Care Note - Critical Care Note Total time excluding time spent on procedures (mins): 85 Comments: Critical care time spent obtaining history from patient or surrogate, discussions with consultants, development of treatment plan with patient or surrogate, evaluation of patient's response to treatment, examination of patient, ordering and performing treatments and interventions, ordering and review of laboratory studies, re-evaluation of patient's condition, ordering and review of radiographic studies and review of old charts Procedures - Intubation Orotracheal Airway evaluation: Normal anatomy Mallampati Classification: Class 1 Medications: Ketamine, Other - Rocuronium Blade size: 4 Equipment used: Glidescope ETT size: 8.0 ETT secured at: Lips ETT secured at (cm): 23 Breath Sounds after Intubation: Equal End tidal CO2 confirmed: Yes Ventilator settings: SIMV Tidal volume: 400 FiO2: 30 Respirations: 14 PEEP: 5 Post Intubation Xray: Yes Intubation Complications: No complications
[2018-10-07 22:12] LABS: HEMATOCRIT 21.5 % (37.9-51.0); MEAN CORPUSCULAR HEMOGLOBIN 24.1 pg (27.0-33.4); MEAN CORPUSCULAR HGB CONC 32.6 g/dL (32.0-36.0); MEAN CORPUSCULAR VOLUME 74 fl (80-97); PLATELET COUNT 132 10^3/uL (150-450); RED BLOOD COUNT 2.91 10^6/uL (4.35-5.55); RED CELL DISTRIBUTION WIDTH 19.4 % (11.5-14.0); WHITE BLOOD COUNT 8.7 10^3/uL (4.0-10.5)
[2018-10-07] MEDS ORDERED: TRANEXAMIC ACID INJ/PF 1,000 MG/10 ML SDV IV ONE ×3 (22:14→22:15)
[2018-10-07] MEDS ORDERED: KETAMINE HCL INJ 500 MG/10 ML VIAL ONE (22:26)
[2018-10-07] MEDS ORDERED: ROCURONIUM BROMIDE INJ 50 MG/5 ML VIAL IV ONE (22:30)
[2018-10-07] MEDS ORDERED: MIDAZOLAM HCL 50 MG/100 ML RTUINJ IV PRN (22:48)
[2018-10-07] MEDS: MIDAZOLAM HCL 50 MG/100 ML RTUINJ ONE (22:50)
[2018-10-07] MEDS: FENTANYL CITRATE INJ/PF 100 MCG/2 ML AMPUL IV PRN ×2 (22:55→22:57)
[2018-10-07] MEDS ORDERED: MIDAZOLAM 2 MG/2 ML INJ IV ONE (23:10)
[2018-10-07] MEDS ORDERED: MIDAZOLAM 2 MG/2 ML INJ ONE (23:11)
[2018-10-07] MEDS ORDERED: PROPOFOL 1,000 MG/100 ML INFUS..BTL IV ONE (23:14)
[2018-10-07] MEDS ORDERED: TRANEXAMIC ACID INJ/PF 1,000 MG/10 ML SDV IV PRN (23:26)
[2018-10-07] MEDS ORDERED: OCTREOTIDE ACETATE INJ/PF 100 MCG/1 ML SDV ONE ×2 (23:57→23:58)
[2018-10-08] MEDS ORDERED: PROPOFOL 1,000 MG/100 ML INFUS..BTL IV ONE (00:01)
[2018-10-08] MEDS ORDERED: OCTREOTIDE ACETATE INJ/PF 100 MCG/1 ML SDV ONE ×2 (00:05→00:06)
[2018-10-08] MEDS ORDERED: VASOPRESSIN INJ 20 UNIT/1 ML VIAL ONE ×2 (00:07→00:08)
[2018-10-08] MEDS ORDERED: LIDOCAINE 2% INJ-PF (100 MG/5 ML) SYRINGE ONE (00:27)
--- NOTE | 2018-10-08 00:34 | RADIOLOGY REPORT (SQ) ---
EXAM DESCRIPTION: XR CHEST 1 VIEW COMPLETED DATE/TME: 10/07/2018 22:50 CLINICAL HISTORY: 58 years, Male, post intubation Compared to 07/22/2018. Findings: Endotracheal tube is about 4 cm above the kathrin, appropriate placement. Enteric tube is in place with tip below the diaphragm in the stomach. The heart is mildly enlarged, stable. Lungs are clear. No pneumothorax or pleural effusion. IMPRESSION: Endotracheal tube and enteric tube are in place.
[2018-10-08 02:27] VITALS: BP 101/72
[2018-10-08] MEDS: MIDAZOLAM HCL 50 MG/100 ML RTUINJ ONE (05:47)
== END 2018-10-08 00:40 | disposition short-term general hospital (02) ==
LOC: ER 15:12
PROC: 0BH17EZ Insertion of Endotracheal Airway into Trachea, Via Natural or Artificial Opening (ICD-10-PCS; principal; 2018-10-07)
DX: K92.0 Hematemesis (principal); K92.1 Melena; R00.0 Tachycardia, unspecified; Z79.899 Other long term (current) drug therapy; Z87.891 Personal history of nicotine dependence
CPT/HCPCS: 96376; 99291; 99292; 96361; 51702; 96375; 96365; 96366; 86900; 86901; 36415; 36430; 86850; 83690; 85025; 85027; 85610; 85730; 80053; 81001; 86920; 71045; 71250; 94660; 31500; P9016; J2250 ×2; J3490 ×3; J3010; J2704; J2270; J2354; S0164; J2550; J2405; J7030; J7050

== ENCOUNTER 2019-05-13 16:58 | Inpatient (IN) | payer BC ==
[2019-05-13 17:44] LABS: APPEARANCE,URINE CLEAR; BILIRUBIN,URINE NEGATIVE (NEGATIVE); COLOR,URINE STRAW; GLUCOSE, URINE NEGATIVE (NEGATIVE); KETONES,URINE NEGATIVE (NEGATIVE); LEUKOCYTE ESTERASE,URINE NEGATIVE (NEGATIVE); NITRITE,URINE NEGATIVE (NEGATIVE); PROTEIN,URINE NEGATIVE (NEGATIVE); URINE SPECIFIC GRAVITY 1.005; UROBILINOGEN,URINE NEGATIVE mg/dL (<2.0)
[2019-05-13 17:46] LABS: ABSOLUTE BASOPHILS # (AUTO) 0.1 10^3/uL (0.0-0.2); ABSOLUTE LYMPHOCYTES (AUTO) 3.5 10^3/uL (0.5-4.7); ABSOLUTE MONOCYTES (AUTO) 0.6 10^3/uL (0.1-1.4); ABSOLUTE NEUT (AUTO) 7.2 10^3/uL (1.7-8.2); BASOPHILS % (AUTO) 0.9 % (0-2); EOSINOPHILS % (AUTO) 0.4 % (0-6); HEMATOCRIT 41.7 % (37.9-51.0); HEMOGLOBIN 13.9 g/dL (13.5-17.0); LYMPHOCYTES % (AUTO) 30.8 % (13-45); MEAN CORPUSCULAR HEMOGLOBIN 25.5 pg (27.0-33.4); MEAN CORPUSCULAR HGB CONC 33.4 g/dL (32.0-36.0); MEAN CORPUSCULAR VOLUME 76 fl (80-97); MONOCYTES % (AUTO) 5.1 % (3-13); PLATELET COUNT 249 10^3/uL (150-450); RED BLOOD COUNT 5.46 10^6/uL (4.35-5.55); RED CELL DISTRIBUTION WIDTH 24.8 % (11.5-14.0); SEGMENTED NEUTROPHILS % (AUTO) 62.8 % (42-78); TOTAL CELLS COUNTED % (AUTO) 100 %; WHITE BLOOD COUNT 11.4 10^3/uL (4.0-10.5)
--- NOTE | 2019-05-13 18:01 | ER Document Report ---
ED General <MITA SALVADOR - Last Filed: 05/13/19 21:51> - General TRAVEL OUTSIDE OF THE [place]. IN LAST 30 DAYS: No <LEXIS WALKER - Last Filed: 05/15/19 20:18> - General Chief Complaint: ETOH Abuse Stated Complaint: ABDOMINAL PAIN Time Seen by Provider: 05/13/19 17:33 Notes: Patient is a 58-year-old male with a history of depression, alcohol abuse, esophageal ulcers and upper GI bleed who presents to emergency department with a chief complaint of abdominal pain. Patient reports over the past week he has been drinking (12) 24 ounce cans of beer per day. Patient reports he does have a history of alcohol abuse with unsuccessful attempts in the rehab facility. Patient reports over the past week he has been extremely depressed. Patient reports he has been off his medication and is requesting a mental health assistance. Patient states he is having suicidal ideation but no specific plan. Patient reports he does not care if he drinks himself to and just doesn't care anymore. Patient has been off all his medications for the past week. Patient reports over the past 24 hours he has vomited greater than 10 times. Patient reports the emesis that is black in nature. Patient reports his last upper endoscopy was a few months ago at [facility]. Patient reports he has had multiple upper GI bleeds in the past with ICU admission and significant b lood loss. (LEXIS WALKER) - Related Data Allergies/Adverse Reactions: No Known Allergies Allergy (Verified 05/13/19 17:05) Past Medical History - General Information source: Patient - Social History Smoking Status: Current Some Day Smoker Frequency of alcohol use: Heavy Lives with: Family Family History: Reviewed & Not Pertinent Patient has suicidal ideation: No Patient has homicidal ideation: No - Past Medical History Cardiac Medical History: Reports: Hx Hypertension Pulmonary Medical History: Reports: None Denies: Hx Tuberculosis EENT Medical History: Reports: None Neurological Medical History: Reports: None. Denies: Hx Seizures Endocrine Medical History: Reports: None Renal/ Medical History: Reports: None. Denies: Hx Peritoneal Dialysis Malignancy Medical History: Reports None GI Medical History: Reports: Hx Gastritis, Hx Gastroesophageal Reflux Disease, Hx Pancreatitis Musculoskeletal Medical History: Reports None Skin Medical History: Reports None Psychiatric Medical History: Reports: Hx Anxiety, Hx Bipolar Disorder, Hx Depression, Hx Post Traumatic Stress Disorder Traumatic Medical History: Reports: None Infectious Medical History: Reports: None Past Surgical History: Reports: Hx Orthopedic Surgery - Left knee x 2 - Immunizations Hx Diphtheria, Pertussis, Tetanus Vaccination: Yes - 05/14/12 <LEXIS WALKER - Last Filed: 05/15/19 20:18> Review of Systems - Review of Systems Constitutional: See HPI EENT: No symptoms reported Cardiovascular: No symptoms reported Respiratory: No symptoms reported Gastrointestinal: See HPI Genitourinary: No symptoms reported Male Genitourinary: No symptoms reported Musculoskeletal: No symptoms reported Skin: No symptoms reported Hematologic/Lymphatic: No symptoms reported Neurological/Psychological: No symptoms reported <LEXIS WALKER - Last Filed: 05/15/19 20:18> Physical Exam <LEXIS WALKER - Last Filed: 05/15/19 20:18> - Vital signs Vitals: Temp Pulse Resp BP Pulse Ox 98.8 F 102 H 20 127/98 H 94 05/13/19 16:59 05/13/19 16:59 05/13/19 16:59 05/13/19 16:59 05/13/19 16:59 - Notes Notes: GENERAL: Well-appearing, well-nourished and in no acute distress. HEAD: Atraumatic, normocephalic. EYES: Pupils equal round and reactive to light, extraocular movements intact, sclera anicteric, conjunctiva are normal. ENT: Nares patent, oropharynx clear without exudates. Moist mucous membranes. Patient has a dried black crust around his lips that patient reports is from his vomitus. NECK: Normal range of motion, supple without lymphadenopathy or JVD. LUNGS: Breath sounds clear to auscultation bilaterally and equal. No wheezes rales or rhonchi. HEART: Regular rate and rhythm without murmurs, rubs or gallops. ABDOMEN: Soft, obese, slightly tender in upper abdomen, normoactive bowel sounds. No guarding, no rebound. No masses appreciated. BACK: No cervical, thoracic, lumbar midline tenderness. No saddle anesthesia, normal distal neurovascular exam. GENITOURINARY: Deferred. EXTREMITIES: Normal range of motion, no pitting or edema. No clubbing or cyanosis. NEUROLOGICAL: Cranial nerves II through XII grossly intact. Normal speech, normal gait. PSYCH: Normal mood, normal affect. SKIN: Warm, Dry, normal turgor, no rashes or lesions noted. (LEXIS WALKER) Course - Laboratory Result Diagrams: 05/13/19 17:24 05/13/19 17:24 <MITA SALVADOR - Last Filed: 05/13/19 21:51> - Laboratory Result Diagrams: 05/15/19 05:15 05/14/19 05:52 <LEXIS WALKER - Last Filed: 05/15/19 20:18> - Re-evaluation Re-evalutation: 05/13/19 18:48 Patient heme-occult was negative. 05/13/19 19:[address] did speak with Dr. Reilly with surgery. He reports that he does not perform a EGDs or colonoscopies routinely. He states that Dr. Jackson will be available at 7 AM tomorrow morning and here all weekend and if a scope is necessary. Patient at this time is having no active vomiting, patient's H emoccult was negative, patient is not tachycardic or hypotensive at this time. Patient is not currently anemic. I do believe patient will ultimately need an EGD. I have initiated IV Protonix 40 mg x 1 dose to be given here in the emergency department. 05/13/19 19:53 Patient currently stating he feels nauseous. Patient also reports he feels jittery but he feels like he may be withdrawing. Patient alcohol level was in the 300s at 1700. 05/13/19 20:30 Patient reports his nausea is better after receiving the Protonix and Zofran. Will initiate IV fluids. Patient is currently stable, and is not currently hypotensive or tachycardic. I did speak with Dr. Dacosta regarding admission. I also did speak with the manager trust Dr. Yepez who does not believe that the patient requires ICU admission at this time. Dr. Dacosta would like me to obtain a chest x-ray to rule out free air due to a perforation. I did explain this in detail with the patient and gave bedside report to Mita Salvador PA-C. (LEXIS WALKER) - Vital Signs Vital signs: Temp Pulse Resp BP Pulse Ox 98.4 F 85 16 135/94 H 98 05/15/19 19:21 05/15/19 19:21 05/15/19 19:21 05/15/19 19:21 05/15/19 19:21 - Laboratory Laboratory results interpreted by me: 05/13/19 05/13/19 05/13/19 17:08 17:08 17:24 WBC 11.4 H MCV 76 L MCH 25.5 L RDW 24.8 H Glucose Calcium Urine Blood LARGE H Serum Alcohol 369 H* 05/13/19 17:24 WBC MCV MCH RDW Glucose 117 H Calcium 8.2 L Urine Blood Serum Alcohol Discharge - Discharge Admitting Provider: Praneeth (Hospitalist) Unit Admitted: I[facility]U <MITA SALVADOR - Last Filed: 05/13/19 21:51> <LEXIS WALKER - Last Filed: 05/15/19 20:18> - Discharge Clinical Impression: Alcohol abuse Hematemesis Qualifiers: Nausea presence: unspecified Qualified Code(s): K92.0 - Hematemesis Alcohol intoxication Qualifiers: Complication of substance-induced condition: with unspecified complication Qualified Code(s): F10.929 - Alcohol use, unspecified with intoxication, unspecified Condition: Stable Disposition: ADMITTED INPATIENT
[2019-05-13 18:04] LABS: ALBUMIN 3.8 g/dL (3.5-5.0); ALKALINE PHOSPHATASE 49 U/L (38-126); ANION GAP 14 (5-19); ASPARTATE AMINO TRANSFERASE 47 U/L (17-59); BILIRUBIN,DIRECT 0.2 mg/dL (0.0-0.4); BILIRUBIN,TOTAL 0.3 mg/dL (0.2-1.3); BLOOD UREA NITROGEN 15 mg/dL (7-20); CALCIUM 8.2 mg/dL (8.4-10.2); CARBON DIOXIDE 24 mmol/L (22-30); CHLORIDE 102 mmol/L (98-107); GLUCOSE 117 mg/dL (75-110); POTASSIUM 4.2 mmol/L (3.6-5.0); TOTAL PROTEIN 6.9 g/dL (6.3-8.2)
[2019-05-13 18:07] LABS: ANISOCYTOSIS 3+; PLATELET COMMENT ADEQUATE
[2019-05-13 18:09] LABS: OVALOCYTES 1+; TARGET CELLS SLIGHT
[2019-05-13] MEDS ORDERED: PANTOPRAZOLE SODIUM 40 MG VIAL IV ONE ×2 (19:00→19:05)
[2019-05-13 19:24] LABS: URINE AMPHETAMINES SCREEN NEGATIVE; URINE BARBITURATES SCREEN NEGATIVE; URINE BENZODIAZEPINES SCREEN NEGATIVE; URINE COCAINE SCREEN NEGATIVE; URINE MARIJUANA (THC) SCREEN NEGATIVE; URINE METHADONE SCREEN NEGATIVE; URINE PHENCYCLIDINE SCREEN NEGATIVE
[2019-05-13] MEDS ORDERED: ONDANSETRON HCL INJ/PF 4 MG/2 ML SDV IV ONE (19:31)
[2019-05-13 19:59] LABS: INTERNATIONAL RATION (INR) 0.94; PROTHROMBIN TIME 12.6 SEC (11.4-15.4)
[2019-05-13 20:00] LABS: PARTIAL THROMBOPLASTIN TIME 29.4 SEC (23.5-35.8)
[2019-05-13] MEDS ORDERED: NORMAL SALINE 1000 ML 1,000 ML IV ONE (20:06)
--- NOTE | 2019-05-13 21:32 | RADIOLOGY REPORT (SQ) ---
EXAM DESCRIPTION: XR CHEST 2 VIEWS COMPLETED DATE/TME: 05/13/2019 20:21 CLINICAL HISTORY: 58 years, Male, possible free air COMPARISON: Multiple prior chest radiographs, most recent from 11/04/2018 NUMBER OF VIEWS: Four TECHNIQUE: Frontal and lateral radiograph of the chest were obtained LIMITATIONS: None. FINDINGS: Cardiac and mediastinal contours are. Lungs are clear. No pleural effusion or pneumothorax. IMPRESSION: No acute disease. copyright 2010 [employer]- All Rights Reserved
[2019-05-13] MEDS ORDERED: IPRATROPIUM/ALBUTEROL 0.5-2.5 MG/3 ML AMPUL NEB PRN (22:04)
[2019-05-13] MEDS ORDERED: MAG HYDROX/AL HYDROX/SIMETH SUSP 30 ML UDCUP PO PRN (22:04)
[2019-05-13] MEDS ORDERED: ACETAMINOPHEN 325 MG TABLET PO PRN (22:04)
[2019-05-13] MEDS ORDERED: DIAZEPAM 5 MG TABLET PO ONE (22:30)
[2019-05-13] MEDS ORDERED: FOLIC ACID 1 MG TABLET PO ONE (22:30)
[2019-05-13] MEDS: LORAZEPAM INJ 2 MG/1 ML VIAL IV PRN (22:52)
[2019-05-13] MEDS: NORMAL SALINE 1000 ML 1,000 ML IV SCH (22:52)
[2019-05-13] MEDS ORDERED: THIAMINE HCL 100 MG TABLET PO ONE (23:00)
[2019-05-13] MEDS ORDERED: NICOTINE 7 MG/24 HR PATCH.TD24 TD ONE (23:15)
[2019-05-14] MEDS: IPRATROPIUM/ALBUTEROL 0.5-2.5 MG/3 ML AMPUL NEB SCH ×3 (00:37→15:57)
[2019-05-14] MEDS ORDERED: NICOTINE 7 MG/24 HR PATCH.TD24 ONE (01:54)
[2019-05-14] MEDS: LORAZEPAM INJ 2 MG/1 ML VIAL IV PRN ×2 (04:13→19:54)
--- NOTE | 2019-05-14 05:27 | PDOC H&P ---
History of Present Illness Admission Date/PCP: 05/13/19 22:11 Patient complains of: Abdominal pain and coffee-ground vomiting History of Present Illness: DANIA BARCLAY is a 58 year old male with a past medical history of bipolar, esophageal ulcer, Celina-Clemente tear, episodic alcohol binging and hypertension. He presents severely intoxicated with 12 hours of epigastric pain nausea and vomiting and unclear quantity of coffee-ground material. He is a poor historian with dried blood around the mouth, hemoglobin is remarkably normal, no coagulopathy or thrombocytopenia. He is started on IV Pepcid and referred to the hospitalist for admission. He denies [id number] medications other than acetaminophen. Past Medical History Cardiac Medical History: Reports: Hypertension Pulmonary Medical History: Reports: None Denies: Tuberculosis EENT Medical History: Reports: None Neurological Medical History: Reports: None Denies: Seizures Endocrine Medical History: Reports: None Renal/ Medical History: Reports: None Malignancy Medical History: Reports: None GI Medical History: Reports: Gastroesophageal Reflux Disease Musculoskeltal Medical History: Reports: None Skin Medical History: Reports: None Psychiatric Medical History: Reports: Bipolar Disorder, Depression, Post Traumatic Stress Disorder Traumatic Medical History: Reports: None Infectious Medical History: Reports: None Past Surgical History Past Surgical History: Reports: Orthopedic Surgery - Left knee x 2 Social History Information Source: Patient Lives with: Family Smoking Status: Current Some Day Smoker Frequency of Alcohol Use: Heavy Hx Recreational Drug Use: No Drugs: None Hx Prescription Drug Abuse: No - Advance Directive Resuscitation Status: Full Code Family History Family History: CAD, Hypertension Parental Family History Reviewed: Yes Children Family History Reviewed: Yes Sibling(s) Family History Reviewed.: Yes Medication/Allergy Home Medications: Albuterol Sulfate [Proair HFA Inhalation Aerosol 8.5 gm MDI] 2 puff PRN PRN 09/07/18 Amitriptyline HCl [Elavil 25 mg Tablet] 1 tab PO HSP PRN 09/07/18 Meloxicam [Mobic] 1 tab PO DAILY 09/07/18 Meloxicam [Mobic] 1 tab PO DAILY 09/07/18 Methocarbamol [Robaxin 750 mg Tablet] 1 tab PO BID 09/07/18 Mirabegron [Myrbetriq] 1 tab PO AC 09/07/18 Ondansetron [Zofran Odt 4 mg Tablet] 1 - 2 tab PO Q4H PRN #15 tab.rapdis 09/07/18 Pantoprazole Sodium 1 tab PO BID 09/07/18 Pravastatin Sodium 1 tab PO DAILY 09/07/18 Promethazine HCl [Phenergan 25 mg Tablet] 1 tab PO Q6 PRN 09/07/18 Allergies/Adverse Reactions: No Known Allergies Allergy (Verified 05/13/19 17:05) Review of Systems ROS unobtainable: Due to mental status Physical Exam Vital Signs: Temp Pulse Resp BP Pulse Ox 98.1 F 100 18 145/97 H 94 05/14/19 05:15 05/14/19 05:15 05/14/19 05:15 05/14/19 05:15 05/14/19 05:15 Intake & Output 05/12/19 05/13/19 05/14/19 11:59 11:59 11:59 Intake Total 1999 Balance 1999 Weight 109.8 kg General appearance: PRESENT: cooperative, disheveled, mild distress Head exam: PRESENT: atraumatic, normocephalic Eye exam: PRESENT: conjunctiva pink, EOMI, PERRLA. ABSENT: scleral icterus Ear exam: PRESENT: normal external ear exam Mouth exam: PRESENT: moist, tongue midline, other - Dried blood about the mouth Neck exam: ABSENT: carotid bruit, JVD, lymphadenopathy, thyromegaly Respiratory exam: PRESENT: clear to auscultation helen. ABSENT: rales, rhonchi, wheezes Cardiovascular exam: PRESENT: RRR. ABSENT: diastolic murmur, rubs, systolic murmur Pulses: PRESENT: normal dorsalis pedis pul Vascular exam: PRESENT: normal capillary refill GI/Abdominal exam: PRESENT: normal bowel sounds, soft. ABSENT: distended, guarding, mass, organolmegaly, rebound, tenderness Rectal exam: PRESENT: deferred Extremities exam: PRESENT: full ROM. ABSENT: calf tenderness, clubbing, pedal edema Neurological exam: PRESENT: alert, altered, awake, oriented to person, CN II-XII grossly intact Psychiatric exam: PRESENT: manic, unusual affect Skin exam: PRESENT: dry, intact, warm. ABSENT: cyanosis, rash Results Laboratory Results: 05/13/19 17:24 05/13/19 17:24 05/13/19 05/13/19 05/13/19 17:08 17:24 17:24 WBC 11.4 H RBC 5.46 Hgb 13.9 Hct 41.7 MCV 76 L MCH 25.5 L MCHC 33.4 RDW 24.8 H Plt Count 249 Seg Neutrophils % 62.8 Sodium 139.7 Potassium 4.2 Chloride 102 Carbon Dioxide 24 Anion Gap 14 BUN 15 Creatinine 0.78 Est GFR ( Amer) > 60 Glucose 117 H Calcium 8.2 L Phosphorus Total Bilirubin 0.3 AST 47 Alkaline Phosphatase 49 Total Protein 6.9 Albumin 3.8 Lipase 38.7 Urine Color STRAW Urine Appearance CLEAR Urine pH 9.0 Ur Specific [place] 1.005 Urine Protein NEGATIVE Urine Glucose (UA) NEGATIVE Urine Ketones NEGATIVE Urine Blood LARGE H Urine Nitrite NEGATIVE Ur Leukocyte Esterase NEGATIVE Urine WBC (Auto) 0 Urine RBC (Auto) 2 05/13/19 17:24 WBC RBC Hgb Hct MCV MCH MCHC RDW Plt Count Seg Neutrophils % Sodium Potassium Chloride Carbon Dioxide Anion Gap BUN Creatinine Est GFR ( Amer) Glucose Calcium Phosphorus 3.8 Total Bilirubin AST Alkaline Phosphatase Total Protein Albumin Lipase Urine Color Urine Appearance Urine pH Ur Specific [place] Urine Protein Urine Glucose (UA) Urine Ketones Urine Blood Urine Nitrite Ur Leukocyte Esterase Urine WBC (Auto) Urine RBC (Auto) Impressions: Chest X-Ray 05/13/19 20:21 IMPRESSION: No acute disease. copyright 2011 [employer]- All Rights Reserved Assessment and Plan - Diagnosis (1) Alcoholic gastritis with bleeding Is this a current diagnosis for this admission?: Yes Plan: IMCU admission, IV Protonix, bowel rest, follow-up serial CBC and consider GI versus surgery consult. (2) Alcohol abuse Is this a current diagnosis for this admission?: Yes Plan: Thiamine folate Valium, Ativan as needed (3) Alcohol intoxication Qualifiers: Complication of substance-induced condition: with unspecified complication Qualified Code(s): F10.929 - Alcohol use, unspecified with intoxication, unspecified Is this a current diagnosis for this admission?: Yes Plan: Supportive care (4) Hematemesis Qualifiers: Nausea presence: unspecified Qualified Code(s): K92.0 - Hematemesis Is this a current diagnosis for this admission?: Yes Plan: Secondary to #1, - Time Time Spent with patient: 25-34 minutes - Inpatient Certification Medical Necessity: Need Close Monitoring Due to Risk of Patient Decompensation
[2019-05-14] MEDS: DIAZEPAM 5 MG TABLET PO SCH ×4 (05:39→21:25)
[2019-05-14] MEDS: NORMAL SALINE 1000 ML 1,000 ML IV SCH (05:48)
[2019-05-14 06:08] LABS: ABSOLUTE EOSINOPHILS # (AUTO) 0.1 10^3/uL (0.0-0.6); ABSOLUTE LYMPHOCYTES (AUTO) 1.8 10^3/uL (0.5-4.7); ABSOLUTE MONOCYTES (AUTO) 0.7 10^3/uL (0.1-1.4); ABSOLUTE NEUT (AUTO) 5.5 10^3/uL (1.7-8.2); BASOPHILS % (AUTO) 0.6 % (0-2); EOSINOPHILS % (AUTO) 1.5 % (0-6); LYMPHOCYTES % (AUTO) 22.3 % (13-45); MEAN CORPUSCULAR HEMOGLOBIN 25.7 pg (27.0-33.4); MEAN CORPUSCULAR HGB CONC 33.2 g/dL (32.0-36.0); MEAN CORPUSCULAR VOLUME 77 fl (80-97); PLATELET COUNT 194 10^3/uL (150-450); RED BLOOD COUNT 5.05 10^6/uL (4.35-5.55); RED CELL DISTRIBUTION WIDTH 24.8 % (11.5-14.0); SEGMENTED NEUTROPHILS % (AUTO) 67.6 % (42-78); TOTAL CELLS COUNTED % (AUTO) 100 %; WHITE BLOOD COUNT 8.2 10^3/uL (4.0-10.5)
[2019-05-14 06:29] LABS: ALBUMIN 3.3 g/dL (3.5-5.0); ALKALINE PHOSPHATASE 46 U/L (38-126); ANION GAP 11 (5-19); ASPARTATE AMINO TRANSFERASE 34 U/L (17-59); BILIRUBIN,DIRECT 0.1 mg/dL (0.0-0.4); BILIRUBIN,TOTAL 0.3 mg/dL (0.2-1.3); BLOOD UREA NITROGEN 13 mg/dL (7-20); CALCIUM 7.6 mg/dL (8.4-10.2); CARBON DIOXIDE 21 mmol/L (22-30); CHLORIDE 107 mmol/L (98-107); GLUCOSE 101 mg/dL (75-110); POTASSIUM 4.1 mmol/L (3.6-5.0); TOTAL PROTEIN 6.1 g/dL (6.3-8.2)
[2019-05-14 06:51] LABS: ANISOCYTOSIS 3+; HYPOCHROMASIA SLIGHT; OVALOCYTES 1+
[2019-05-14 06:52] LABS: PLATELET COMMENT ADEQUATE
--- NOTE | 2019-05-14 08:48 | EKG REPORT ---
SEVERITY:- OTHERWISE NORMAL ECG - SINUS TACHYCARDIA : Confirmed by: Luis Miguel Jean 14-May-2019 08:47:56
[2019-05-14] MEDS ORDERED: ONDANSETRON HCL INJ/PF 4 MG/2 ML SDV ONE ×2 (09:13→11:48)
[2019-05-14] MEDS: FOLIC ACID 1 MG TABLET PO SCH (09:21)
[2019-05-14] MEDS: THIAMINE HCL 100 MG TABLET PO SCH (09:21)
[2019-05-14] MEDS: NICOTINE 7 MG/24 HR PATCH.TD24 TD SCH (09:21)
[2019-05-14] MEDS ORDERED: METOCLOPRAMIDE HCL INJ/PF 10 MG/2 ML SDV ONE (10:27)
[2019-05-14] MEDS ORDERED: DIPHENHYDRAMINE HCL 50 MG/ML VIAL ONE (11:48)
[2019-05-14] MEDS ORDERED: NALOXONE HCL INJ/PF 0.4 MG/1 ML SDV ONE (11:49)
[2019-05-14] MEDS ORDERED: FLUMAZENIL INJ 0.5 MG/5 ML VIAL ONE (11:49)
[2019-05-14] MEDS ORDERED: FENTANYL CITRATE INJ/PF 100 MCG/2 ML AMPUL ONE ×3 (11:49→13:35)
[2019-05-14] MEDS ORDERED: MIDAZOLAM 2 MG/2 ML INJ ONE ×3 (11:49→13:40)
[2019-05-14] MEDS ORDERED: EPINEPHRINE INJ 1 MG/10 ML DISP.SYRIN ONE (11:49)
[2019-05-14] MEDS ORDERED: GLUCAGON,HUMAN RECOMB 1 MG INJ ONE (11:49)
[2019-05-14 12:08] LABS: HEMATOCRIT 37.8 % (37.9-51.0); HEMOGLOBIN 12.7 g/dL (13.5-17.0); MEAN CORPUSCULAR HEMOGLOBIN 25.7 pg (27.0-33.4); MEAN CORPUSCULAR HGB CONC 33.5 g/dL (32.0-36.0); MEAN CORPUSCULAR VOLUME 77 fl (80-97); PLATELET COUNT 190 10^3/uL (150-450); RED BLOOD COUNT 4.93 10^6/uL (4.35-5.55); RED CELL DISTRIBUTION WIDTH 24.3 % (11.5-14.0); WHITE BLOOD COUNT 11.7 10^3/uL (4.0-10.5)
[2019-05-14] MEDS ORDERED: LIDOCAINE 2% INJ-PF (100 MG/5 ML) SYRINGE ONE (13:35)
[2019-05-14] MEDS ORDERED: DEXMEDETOMIDINE INJ 80 MCG/20 ML VIAL IV ONE (13:35)
[2019-05-14] MEDS ORDERED: PROPOFOL INJ 200 MG/20 ML VIAL IV ONE (13:35)
--- NOTE | 2019-05-14 14:13 | Operative Report ---
Nonrecallable Operative Report DATE OF SURGERY: 05/14/19 PREOPERATIVE DIAGNOSIS: hematemesis, etoh abuse POSTOPERATIVE DIAGNOSIS: portal hypertension, portal hypertensive gastropathy,gastritis, duodenitis,esoph varicies. OPERATION: esophagogastroduodenoscopy SURGEON: TWAN DIALLO ANESTHESIA: GA TISSUE REMOVED OR ALTERED: none COMPLICATIONS: none ESTIMATED BLOOD LOSS: 0 INTRAOPERATIVE FINDINGS: see note PROCEDURE: Patient was brought to the operating room awake alert stable condition placed the operative table in a supine position induced under general anesthesia intubated After appropriate timeout and site verification the Olympus gastroscope was utilized for the procedure was passed into the posterior pharynx and manipulated down the proximal esophagus to the GE junction and through the GE junction into the stomach antrum the pylorus was identified and it was intubated and we r eached the duodenum. As we slowly withdrew the scope we again visualization for the of the surrounding structures the duodenum appeared to be mildly reddened consistent with duodenitis as we came back to the pylorus was no evidence of any ulcer disease however there were multiple dilated veins along the antrum and body the stomach that were erythematous consistent with a portal gastropathy. Scope was then retroflexed and noted a moderate hiatal hernia there is no evidence of ulcers in the fundus body or cardia the stomach however there are multiple dilated veins within the stomach. The scope was then straightened and pulled back through the GE junction identifying the distal esophagus as we pulled back to the more proximal esophagus at about 25 to 30 cm we noted dilated veins along the mcclelland of the esophagus there may have there was questionable evidence of previous variceal banding. There was some dilated esophageal varices along the lateral wall of esophagus at approximately 30 cm there is no evidence of any active bleeding. The scope was then slowly withdrawn. Impression 1 probable portal hypertension Portal hypertensive gastropathy. 3 esophageal varices 4 gastritis 5 duodenitis
--- NOTE | 2019-05-14 15:50 | PDOC PROGRESS REPORT ---
Subjective Progress Note for:: 05/14/19 Subjective:: No adverse events overnight. No new complaints. Vital signs been stable. He is been getting his scheduled Ativan. He had his EGD today. He said no more bouts of hematemesis. Reason For Visit: UPPER GI BLEED,ALCOHOLIC GASTRITIS Physical Exam Vital Signs: Temp Pulse Resp BP Pulse Ox 98.1 F 96 15 146/85 H 91 L 05/14/19 14:03 05/14/19 14:33 05/14/19 14:33 05/14/19 14:33 05/14/19 14:33 Intake & Output 05/13/19 05/14/19 05/15/19 06:59 06:59 06:59 Intake Total 2000 250 Output Total 400 Balance 2000 -150 Weight 109.8 kg General appearance: PRESENT: no acute distress, cooperative, disheveled, obese Respiratory exam: PRESENT: clear to auscultation helen, symmetrical, unlabored. ABSENT: accessory muscle use, chest wall tenderness, crackles, prolonged expiratory phas, rhonchi, tachypnea, wheezes Cardiovascular exam: PRESENT: RRR, +S1, +S2 Pulses: PRESENT: normal carotid pulses Vascular exam: PRESENT: normal capillary refill GI/Abdominal exam: PRESENT: normal bowel sounds, soft. ABSENT: distended, guarding, rebound, tenderness Extremities exam: ABSENT: clubbing, pedal edema Musculoskeletal exam: PRESENT: normal inspection. ABSENT: deformity Neurological exam: PRESENT: alert, awake, oriented to person, oriented to place, oriented to situation Psychiatric exam: PRESENT: appropriate affect, normal mood Skin exam: PRESENT: dry, warm Results Laboratory Results: 05/14/19 11:45 05/14/19 05:52 05/13/19 05/13/19 05/13/19 17:08 17:24 17:24 WBC 11.4 H RBC 5.46 Hgb 13.9 Hct 41.7 MCV 76 L MCH 25.5 L MCHC 33.4 RDW 24.8 H Plt Count 249 Seg Neutrophils % 62.8 Sodium 139.7 Potassium 4.2 Chloride 102 Carbon Dioxide 24 Anion Gap 14 BUN 15 Creatinine 0.78 Est GFR ( Amer) > 60 Glucose 117 H Calcium 8.2 L Phosphorus Total Bilirubin 0.3 AST 47 Alkaline Phosphatase 49 Total Protein 6.9 Albumin 3.8 Lipase 38.7 Urine Color STRAW Urine Appearance CLEAR Urine pH 9.0 Ur Specific [place] 1.005 Urine Protein NEGATIVE Urine Glucose (UA) NEGATIVE Urine Ketones NEGATIVE Urine Blood LARGE H Urine Nitrite NEGATIVE Ur Leukocyte Esterase NEGATIVE Urine WBC (Auto) 0 Urine RBC (Auto) 2 05/13/19 05/14/19 05/14/19 17:24 05:52 05:52 WBC 8.2 RBC 5.05 Hgb 13.0 L Hct 39.0 MCV 77 L MCH 25.7 L MCHC 33.2 RDW 24.8 H Plt Count 194 Seg Neutrophils % 67.6 Sodium 138.5 Potassium 4.1 Chloride 107 Carbon Dioxide 21 L Anion Gap 11 BUN 13 Creatinine 0.77 Est GFR ( Amer) > 60 Glucose 101 Calcium 7.6 L Phosphorus 3.8 Total Bilirubin 0.3 AST 34 Alkaline Phosphatase 46 Total Protein 6.1 L Albumin 3.3 L Lipase Urine Color Urine Appearance Urine pH Ur Specific [place] Urine Protein Urine Glucose (UA) Urine Ketones Urine Blood Urine Nitrite Ur Leukocyte Esterase Urine WBC (Auto) Urine RBC (Auto) 05/14/19 11:45 WBC 11.7 H RBC 4.93 Hgb 12.7 L Hct 37.8 L MCV 77 L MCH 25.7 L MCHC 33.5 RDW 24.3 H Plt Count 190 Seg Neutrophils % Sodium Potassium Chloride Carbon Dioxide Anion Gap BUN Creatinine Est GFR ( Amer) Glucose Calcium Phosphorus Total Bilirubin AST Alkaline Phosphatase Total Protein Albumin Lipase Urine Color Urine Appearance Urine pH Ur Specific [place] Urine Protein Urine Glucose (UA) Urine Ketones Urine Blood Urine Nitrite Ur Leukocyte Esterase Urine WBC (Auto) Urine RBC (Auto) Impressions: Chest X-Ray 05/13/19 20:21 IMPRESSION: No acute disease. copyright 2010 [employer]- All Rights Reserved Assessment and Plan - Diagnosis (1) Alcoholic gastritis with bleeding Qualifiers: Chronicity: acute Qualified Code(s): K29.21 - Alcoholic gastritis with bleeding Is this a current diagnosis for this admission?: Yes Plan: He had gastritis and duodenitis on EGD no obvious bleeding lesions. None of the varices look like they have been bleeding. He is on a proton pump inhibitor. (2) Portal hypertension with esophageal varices Is this a current diagnosis for this admission?: Yes Plan: He had numerous esophageal and gastric varices. None of them appeared to have been bleeding. We got him on some scheduled benzodiazepine along with some PRN medication to try to keep from going into withdrawal. Started him on some nadolol. - Time Time Spent with patient: 25-34 minutes
[2019-05-14] MEDS: PANTOPRAZOLE SODIUM 40 MG VIAL IV SCH ×2 (17:11→21:25)
[2019-05-14 18:40] LABS: HEMATOCRIT 38.8 % (37.9-51.0); HEMOGLOBIN 13.1 g/dL (13.5-17.0); MEAN CORPUSCULAR HGB CONC 33.8 g/dL (32.0-36.0); MEAN CORPUSCULAR VOLUME 77 fl (80-97); RED BLOOD COUNT 5.03 10^6/uL (4.35-5.55); RED CELL DISTRIBUTION WIDTH 24.3 % (11.5-14.0); WHITE BLOOD COUNT 8.5 10^3/uL (4.0-10.5)
[2019-05-14 18:58] LABS: PLATELET COUNT 163 10^3/uL (150-450)
[2019-05-14] MEDS: ONDANSETRON HCL INJ/PF 4 MG/2 ML SDV IV PRN (20:26)
[2019-05-14] MEDS: NADOLOL 40 MG TABLET PO SCH (21:25)
[2019-05-15] MEDS: IPRATROPIUM/ALBUTEROL 0.5-2.5 MG/3 ML AMPUL NEB SCH ×4 (00:32→23:45)
[2019-05-15 00:47] LABS: HEMATOCRIT 36.9 % (37.9-51.0); HEMOGLOBIN 12.6 g/dL (13.5-17.0); MEAN CORPUSCULAR HEMOGLOBIN 26.1 pg (27.0-33.4); MEAN CORPUSCULAR VOLUME 77 fl (80-97); PLATELET COUNT 170 10^3/uL (150-450); RED CELL DISTRIBUTION WIDTH 23.8 % (11.5-14.0); WHITE BLOOD COUNT 8.2 10^3/uL (4.0-10.5)
[2019-05-15] MEDS: DIAZEPAM 5 MG TABLET PO SCH (05:02)
[2019-05-15 05:48] LABS: HEMOGLOBIN 12.6 g/dL (13.5-17.0); MEAN CORPUSCULAR HEMOGLOBIN 26.2 pg (27.0-33.4); MEAN CORPUSCULAR VOLUME 77 fl (80-97); PLATELET COUNT 164 10^3/uL (150-450); RED CELL DISTRIBUTION WIDTH 23.8 % (11.5-14.0)
[2019-05-15] MEDS: FOLIC ACID 1 MG TABLET PO SCH (10:30)
[2019-05-15] MEDS: THIAMINE HCL 100 MG TABLET PO SCH (10:30)
[2019-05-15] MEDS: NICOTINE 7 MG/24 HR PATCH.TD24 TD SCH (10:30)
[2019-05-15] MEDS: PANTOPRAZOLE SODIUM 40 MG VIAL IV SCH ×2 (10:30→21:14)
--- NOTE | 2019-05-15 14:27 | PDOC PROGRESS REPORT ---
Subjective Progress Note for:: 05/15/19 Subjective:: No adverse events overnight. No new complaints. He is asking if his diet can be advanced. He said he has had some weird dreams but nothing that he would consider hallucinations. He is not showing any signs of tremulousness. Reason For Visit: UPPER GI BLEED,ALCOHOLIC GASTRITIS Physical Exam Vital Signs: Temp Pulse Resp BP Pulse Ox 98.1 F 80 18 136/92 H 98 05/15/19 11:24 05/15/19 11:24 05/15/19 11:24 05/15/19 11:24 05/15/19 11:24 Intake & Output 05/14/19 05/15/19 05/16/19 06:59 06:59 06:59 Intake Total 1999 470 520 Output Total 2024 Balance 1999 520 Weight 109.8 kg 110.5 kg General appearance: PRESENT: no acute distress, cooperative, disheveled, obese Respiratory exam: PRESENT: clear to auscultation helen, symmetrical, unlabored. ABSENT: accessory muscle use, chest wall tenderness, crackles, prolonged expiratory phas, rhonchi, tachypnea, wheezes Cardiovascular exam: PRESENT: RRR, +S1, +S2 Pulses: PRESENT: normal carotid pulses Vascular exam: PRESENT: normal capillary refill GI/Abdominal exam: PRESENT: normal bowel sounds, soft. ABSENT: distended, guarding, rebound, tenderness Extremities exam: ABSENT: clubbing, pedal edema Musculoskeletal exam: PRESENT: normal inspection. ABSENT: deformity Neurological exam: PRESENT: alert, awake, oriented to person, oriented to place, oriented to situation Psychiatric exam: PRESENT: appropriate affect, normal mood Skin exam: PRESENT: dry, warm Results Laboratory Results: 05/15/19 05:15 05/14/19 05:52 05/14/19 05/15/19 05/15/19 18:24 00:29 05:15 WBC 8.5 8.2 7.0 RBC 5.03 4.80 4.80 Hgb 13.1 L 12.6 L 12.6 L Hct 38.8 36.9 L 37.0 L MCV 77 L 77 L 77 L MCH 26.0 L 26.1 L 26.2 L MCHC 33.8 34.0 34.0 RDW 24.3 H 23.8 H 23.8 H Plt Count 163 170 164 Impressions: Chest X-Ray 05/13/19 20:21 IMPRESSION: No acute disease. copyright 2011 [employer]- All Rights Reserved Assessment and Plan - Diagnosis (1) Alcoholic gastritis with bleeding Qualifiers: Chronicity: acute Qualified Code(s): K29.21 - Alcoholic gastritis with bleeding Is this a current diagnosis for this admission?: Yes Plan: He had gastritis and duodenitis on EGD no obvious bleeding lesions. None of the varices look like they have been bleeding. He is on a proton pump inhibitor. He said that he would like to be medically detoxified before he goes home. (2) Portal hypertension with esophageal varices Is this a current diagnosis for this admission?: Yes Plan: He had numerous esophageal and gastric varices. None of them appeared to have been bleeding. I will transition him to just as needed benzodiazepine for with drawal symptoms. Started him on some nadolol. We will get a right upper quadrant ultrasound to evaluate for cirrhosis and get Doppler of the portal vein. - Time Time Spent with patient: 15-24 minutes
[2019-05-15] MEDS: ONDANSETRON HCL INJ/PF 4 MG/2 ML SDV IV PRN (17:16)
--- NOTE | 2019-05-15 19:37 | RADIOLOGY REPORT (SQ) ---
EXAM DESCRIPTION: U/S ABDOMEN LTD W/DOPPLER COMPLETED DATE/TIME: 05/15/2019 6:46 pm REASON FOR STUDY: RUQ U/S for esophageal varices, r/o portal HTN COMPARISON: None. TECHNIQUE: Dynamic and static grayscale images acquired of the abdomen and recorded on PACS. Additio nal selected color Doppler and spectral images recorded. LIMITATIONS: Bowel gas. FINDINGS: PANCREAS: Mostly obscured by bowel gas. LIVER: No masses. Echotexture increased consistent with fatty infiltration. LIVER VASCULATURE: Normal directional flow of the main portal vein and hepatic veins. GALLBLADDER: No stones. Normal wall thickness. No pericholecystic fluid. ULTRASOUND-DETECTED SHARMA'S SIGN: Negative. INTRAHEPATIC DUCTS AND COMMON DUCT: CBD and intrahepatic ducts normal caliber. No filling defects. INFERIOR VENA CAVA: Normal flow. AORTA: No aneurysm identified. RIGHT KIDNEY: Normal size. Normal echogenicity. No solid or suspicious masses. No hydronephros is. No calcifications. PERITONEAL AND RIGHT PLEURAL SPACE: No ascites or effusions. OTHER: No other significant findings. IMPRESSION: NO ACUTE FINDINGS. No evidence for portal venous hypertension. TECHNICAL DOCUMENTATION: JOB ID: [id number] [place]-72 2010 [employer]- All Rights Reserved Reading location - IP/workstation name: [place]
[2019-05-15] MEDS: NADOLOL 40 MG TABLET PO SCH (21:14)
[2019-05-16] MEDS: IPRATROPIUM/ALBUTEROL 0.5-2.5 MG/3 ML AMPUL NEB SCH ×3 (07:42→23:35)
[2019-05-16] MEDS: FOLIC ACID 1 MG TABLET PO SCH (09:33)
[2019-05-16] MEDS: NICOTINE 7 MG/24 HR PATCH.TD24 TD SCH (09:33)
[2019-05-16] MEDS: PANTOPRAZOLE SODIUM 40 MG VIAL IV SCH ×2 (09:33→21:12)
[2019-05-16] MEDS: THIAMINE HCL 100 MG TABLET PO SCH (09:33)
[2019-05-16] MEDS: DIAZEPAM INJ 10 MG/2 ML DISP.SYRIN IV PRN ×2 (14:03→23:28)
--- NOTE | 2019-05-16 16:30 | PSYCHOLOGICAL NOTE ---
Psych Note - Psych Note Date seen by psych provider: 05/16/19 Time seen by psych provider: 16:19 - Chart review only Psych Note: Presenting Problem: SI (at 1607 documentation indicated no sitter available and patient denied SI), alcohol abuse (Serum Alcohol Level upon arrival to the ED was 369), medical admit criteria for today was alcohol gastritis with bleeding (documentation noted patient desired to be medically detoxed before discharge which indicates future/forward/goal oriented thinking) and portal HTN with esophageal varices. Today's documentation noted patient reported dreams, denied hallucinations/none noted and no observed tremulousness. He informed medical staff of anxiety and agitation surrounding family dynamics. He is on [facility] protocol. Diagnosis: SI Family Discord Alcohol Use Disorder, Severe Depressive Disorder Impression/Plan: Will conduct evaluation tomorrow and provide recommendations.
--- NOTE | 2019-05-16 16:38 | PDOC PROGRESS REPORT ---
Subjective Progress Note for:: 05/16/19 Subjective:: No adverse events overnight. His only complaint today is he would like to have his diet advanced. He showed a little bit of agitation earlier and had to get some Valium but for the most part says he actually feels pretty good. He had expressed some suicidal ideation and wanted to talk to somebody from behavioral health because he said he is been to [place] before and would like to go back to to get "straightened out." Reason For Visit: UPPER GI BLEED,ALCOHOLIC GASTRITIS Physical Exam Vital Signs: Temp Pulse Resp BP Pulse Ox 97.7 F 75 16 136/94 H 97 05/16/19 11:15 05/16/19 15:59 05/16/19 15:59 05/16/19 11:15 05/16/19 15:59 Intake & Output 05/15/19 05/16/19 05/17/19 06:59 06:59 06:59 Intake Total 470 1820 650 Output Total 2025 1520 Balance -1555 300 650 Weight 110.5 kg 103.2 kg General appearance: PRESENT: no acute distress, cooperative, disheveled, obese Respiratory exam: PRESENT: clear to auscultation helen, symmetrical, unlabored. ABSENT: accessory muscle use, chest wall tenderness, crackles, prolonged expiratory phas, rhonchi, tachypnea, wheezes Cardiovascular exam: PRESENT: RRR, +S1, +S2 Pulses: PRESENT: normal carotid pulses Vascular exam: PRESENT: normal capillary refill GI/Abdominal exam: PRESENT: normal bowel sounds, soft. ABSENT: distended, guarding, rebound, tenderness Extremities exam: ABSENT: clubbing, pedal edema Musculoskeletal exam: PRESENT: normal inspection. ABSENT: deformity Neurological exam: PRESENT: alert, awake, oriented to person, oriented to place, oriented to situation Psychiatric exam: PRESENT: appropriate affect, normal mood Skin exam: PRESENT: dry, warm Results Laboratory Results: 05/15/19 05:15 05/14/19 05:52 Impressions: Chest X-Ray 05/13/19 20:21 IMPRESSION: No acute disease. copyright 2011 [employer]- All Rights Reserved Abdomen Ultrasound 05/15/19 00:00 IMPRESSION: NO ACUTE FINDINGS. No evidence for portal venous hypertension. Assessment and Plan - Diagnosis (1) Alcoholic gastritis with bleeding Qualifiers: Chronicity: acute Qualified Code(s): K29.21 - Alcoholic gastritis with bleeding Is this a current diagnosis for this admission?: Yes Plan: He had gastritis and duodenitis on EGD no obvious bleeding lesions. None of the varices look like they have been bleeding. He is on a proton pump inhibitor. He said that he would like to be medically detoxified before he goes home. (2) Portal hypertension with esophageal varices Is this a current diagnosis for this admission?: Yes Plan: He had numerous esophageal and gastric varices. None of them appeared to have been bleeding. On PRN medication for withdrawal symptoms. Started him on some nadolol. Right upper quadrant ultrasound showed fatty liver without clear ev idence of portal hypertension. (3) Suicidal ideation Is this a current diagnosis for this admission?: Yes Plan: Psychological evaluation is been ordered. - Time Time Spent with patient: 15-24 minutes
[2019-05-16] MEDS: NADOLOL 40 MG TABLET PO SCH (21:12)
[2019-05-17] MEDS ORDERED: INFLUENZA QUAD (6MOS+) 2019-20 VAC 0.5 ML SYR IM ONE (06:14)
[2019-05-17] MEDS: IPRATROPIUM/ALBUTEROL 0.5-2.5 MG/3 ML AMPUL NEB SCH ×3 (07:36→23:53)
[2019-05-17] MEDS ORDERED: CALCIUM GLUCONATE 1,000 MG in DEXTROSE 5%-WATER 50 ML IV ONE (08:00)
--- NOTE | 2019-05-17 08:04 | PDOC PROGRESS REPORT ---
Subjective Progress Note for:: 05/17/19 Subjective:: 05/17/2019-no complaints this a.m. Reason For Visit: UPPER GI BLEED,ALCOHOLIC GASTRITIS Physical Exam Vital Signs: Temp Pulse Resp BP Pulse Ox 97.6 F 81 16 131/90 H 98 05/17/19 03:23 05/17/19 07:36 05/17/19 07:36 05/17/19 03:23 05/17/19 07:36 Intake & Output 05/16/19 05/17/19 05/18/19 06:59 06:59 06:59 Intake Total 1820 1130 Output Total 1520 Balance 300 1130 Weight 103.2 kg 102.2 kg General appearance: PRESENT: no acute distress, well-developed, well-nourished Head exam: PRESENT: atraumatic, normocephalic Eye exam: PRESENT: conjunctiva pink, EOMI, PERRLA. ABSENT: scleral icterus Ear exam: PRESENT: normal external ear exam Mouth exam: PRESENT: moist, tongue midline Neck exam: ABSENT: carotid bruit, JVD, lymphadenopathy, thyromegaly Respiratory exam: PRESENT: clear to auscultation helen. ABSENT: rales, rhonchi, wheezes Cardiovascular exam: PRESENT: RRR. ABSENT: diastolic murmur, rubs, systolic murmur Pulses: PRESENT: normal dorsalis pedis pul Vascular exam: PRESENT: normal capillary refill GI/Abdominal exam: PRESENT: normal bowel sounds, soft. ABSENT: distended, guarding, mass, organolmegaly, rebound, tenderness Rectal exam: PRESENT: deferred Extremities exam: PRESENT: full ROM. ABSENT: calf tenderness, clubbing, pedal edema Neurological exam: PRESENT: alert, awake, oriented to person, oriented to place, oriented to time, oriented to situation, CN II-XII grossly intact. ABSENT: motor sensory deficit Psychiatric exam: PRESENT: appropriate affect, normal mood. ABSENT: homicidal ideation, suicidal ideation Skin exam: PRESENT: dry, intact, warm. ABSENT: cyanosis, rash Results Laboratory Results: 05/15/19 05:15 05/14/19 05:52 Impressions: Chest X-Ray 05/13/19 20:21 IMPRESSION: No acute disease. copyright 2010 [employer]- All Rights Reserved Abdomen Ultrasound 05/15/19 00:00 IMPRESSION: NO ACUTE FINDINGS. No evidence for portal venous hypertension. Assessment and Plan - Diagnosis (1) Alcoholic gastritis with bleeding Qualifiers: Chronicity: acute Qualified Code(s): K29.21 - Alcoholic gastritis with bleeding Is this a current diagnosis for this admission?: Yes Plan: He had gastritis and duodenitis on EGD no obvious bleeding lesions. None of the varices look like they have been bleeding. He is on a proton pump inhibitor. He said that he would like to be medically detoxified before he goes home. 05/17/2019-continue proton pump inhibitor. No signs of bleeding at this time. Continue to follow. Medical detox before he is discharged (2) Portal hypertension with esophageal varices Is this a current diagnosis for this admission?: Yes Plan: He had numerous esophageal and gastric varices. None of them appeared to have been bleeding. On PRN medication for withdrawal symptoms. Started him on some nadolol. Right upper quadrant ultrasound showed fatty liver without clear evidence of portal hypertension. 05/17/2019-numerous esophageal and gastric varices. No active bleeding at this time. PRN medications for withdrawal symptoms. Continue to follow (3) Suicidal ideation Is this a current diagnosis for this admission?: Yes Plan: Psychological evaluation is been ordered. 05/17/2019-await psychological evaluation. (4) Hypocalcemia Is this a current diagnosis for this admission?: Yes Plan: 05/17/2019-calcium corrected for albumin 8.16. Will give 1 g of calcium gluconate. Repeat calcium level in a.m. - Time Time Spent with patient: 15-24 minutes - Inpatient Certification Based on my medical assessment, after consideration of the patient's comorbidities, presenting symptoms, or acuity I expect that the services needed warrant INPATIENT care.: Yes I certify that my determination is in accordance with my understanding of Medicare's requirements for reasonable and necessary INPATIENT services [42 CFR 412.3e].: Yes Medical Necessity: Other - Psychological evaluation, bleeding monitoring
[2019-05-17] MEDS: THIAMINE HCL 100 MG TABLET PO SCH (09:20)
[2019-05-17] MEDS: FOLIC ACID 1 MG TABLET PO SCH (09:20)
[2019-05-17] MEDS: DIAZEPAM INJ 10 MG/2 ML DISP.SYRIN IV PRN (09:20)
[2019-05-17] MEDS: NICOTINE 7 MG/24 HR PATCH.TD24 TD SCH (09:20)
[2019-05-17] MEDS ORDERED: CALCIUM GLUCONATE 1000 MG/10 ML INJ IV ONE (09:30)
[2019-05-17] MEDS ORDERED: AMITRIPTYLINE HCL 25 MG TABLET PO PRN (15:41)
[2019-05-17] MEDS ORDERED: LORAZEPAM INJ 2 MG/1 ML VIAL IV PRN (15:43)
[2019-05-17] MEDS ORDERED: AMITRIPTYLINE HCL 50 MG TABLET PO PRN (16:08)
[2019-05-17] MEDS ORDERED: DIVALPROEX SODIUM 500 MG TAB.SR.24H PO SCH (18:00)
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
[2019-05-17] MEDS: NADOLOL 40 MG TABLET PO SCH (21:46)
[2019-05-17] MEDS: SIMVASTATIN 40 MG TABLET PO SCH (21:47)
[2019-05-17] MEDS: PANTOPRAZOLE SODIUM 40 MG TABLET.DR PO SCH (21:47)
[2019-05-17] MEDS: METOPROLOL TARTRATE 25 MG TABLET PO SCH (21:47)
[2019-05-17] MEDS ORDERED: OLANZAPINE 5 MG TABLET PO SCH (22:00)
[2019-05-18 04:47] LABS: HEMOGLOBIN 11.6 g/dL (13.5-17.0); MEAN CORPUSCULAR HEMOGLOBIN 26.5 pg (27.0-33.4); MEAN CORPUSCULAR HGB CONC 34.1 g/dL (32.0-36.0); MEAN CORPUSCULAR VOLUME 78 fl (80-97); PLATELET COUNT 165 10^3/uL (150-450); RED BLOOD COUNT 4.38 10^6/uL (4.35-5.55); RED CELL DISTRIBUTION WIDTH 22.4 % (11.5-14.0); WHITE BLOOD COUNT 6.9 10^3/uL (4.0-10.5)
[2019-05-18 05:04] LABS: ANION GAP 8 (5-19); BLOOD UREA NITROGEN 11 mg/dL (7-20); CALCIUM 8.5 mg/dL (8.4-10.2); CARBON DIOXIDE 23 mmol/L (22-30); CHLORIDE 103 mmol/L (98-107); GLUCOSE 117 mg/dL (75-110); POTASSIUM 3.7 mmol/L (3.6-5.0)
[2019-05-18] MEDS: IPRATROPIUM/ALBUTEROL 0.5-2.5 MG/3 ML AMPUL NEB SCH ×3 (07:55→23:56)
--- NOTE | 2019-05-18 08:17 | PDOC PROGRESS REPORT ---
Subjective Progress Note for:: 05/18/19 Subjective:: 05/17/2019-no complaints this a.m. 05/18/2019-patient states he felt somewhat better this morning. Reason For Visit: UPPER GI BLEED,ALCOHOLIC GASTRITIS Physical Exam Vital Signs: Temp Pulse Resp BP Pulse Ox 97.5 F 67 16 114/76 97 05/18/19 03:41 05/18/19 03:41 05/18/19 03:41 05/18/19 03:41 05/18/19 03:41 Intake & Output 05/17/19 05/18/19 05/19/19 06:59 06:59 06:59 Intake Total 1130 1780 Output Total 0 Balance 1130 1780 Weight 102.2 kg 102.7 kg General appearance: PRESENT: no acute distress, well-developed, well-nourished Head exam: PRESENT: atraumatic, normocephalic Eye exam: PRESENT: conjunctiva pink, EOMI, PERRLA. ABSENT: scleral icterus Ear exam: PRESENT: normal external ear exam Mouth exam: PRESENT: moist, tongue midline Neck exam: ABSENT: carotid bruit, JVD, lymphadenopathy, thyromegaly Respiratory exam: PRESENT: clear to auscultation helen. ABSENT: rales, rhonchi, wheezes Cardiovascular exam: PRESENT: RRR. ABSENT: diastolic murmur, rubs, systolic murmur Pulses: PRESENT: normal dorsalis pedis pul Vascular exam: PRESENT: normal capillary refill GI/Abdominal exam: PRESENT: normal bowel sounds, soft. ABSENT: distended, guarding, mass, organolmegaly, rebound, tenderness Rectal exam: PRESENT: deferred Extremities exam: PRESENT: full ROM. ABSENT: calf tenderness, clubbing, pedal edema Neurological exam: PRESENT: alert, awake, oriented to person, oriented to place, oriented to time, oriented to situation, CN II-XII grossly intact. ABSENT: motor sensory deficit Psychiatric exam: PRESENT: appropriate affect, normal mood. ABSENT: homicidal ideation, suicidal ideation Skin exam: PRESENT: dry, intact, warm. ABSENT: cyanosis, rash Results Laboratory Results: 05/18/19 03:50 05/18/19 03:50 05/18/19 05/18/19 03:50 03:50 WBC 6.9 RBC 4.38 Hgb 11.6 L Hct 34.0 L MCV 78 L MCH 26.5 L MCHC 34.1 RDW 22.4 H Plt Count 165 Sodium 134.1 L Potassium 3.7 Chloride 103 Carbon Dioxide 23 Anion Gap 8 BUN 11 Creatinine 0.77 Est GFR ( Amer) > 60 Glucose 117 H Calcium 8.5 Impressions: Chest X-Ray 05/13/19 20:21 IMPRESSION: No acute disease. copyright 2010 [employer]- All Rights Reserved Abdomen Ultrasound 05/15/19 00:00 IMPRESSION: NO ACUTE FINDINGS. No evidence for portal venous hypertension. Assessment and Plan - Diagnosis (1) Alcoholic gastritis with bleeding Qualifiers: Chronicity: acute Qualified Code(s): K29.21 - Alcoholic gastritis with bleeding Is this a current diagnosis for this admission?: Yes (2) Portal hypertension with esophageal varices Is this a current diagnosis for this admission?: Yes (3) Suicidal ideation Is this a current diagnosis for this admission?: Yes (4) Hypocalcemia Is this a current diagnosis for this admission?: Yes - Summary Assessment: 05/18/2019- Alcoholic gastritis with bleeding-continue proton pump inhibitor. No further bleeding signs and symptoms at this time. Continue to follow Portal hypertension with esophageal varices-numerous esophageal and gastric varices noted on endoscopy. No active bleeding at this time. Continue to follow Suicidal ideation-no suicidal ideation at this time. Patient has been seen by psychiatry. Recommendations to decrease Effexor 150 mg p.o. daily, BuSpar 5 mg p.o. twice daily, clonidine 0.1 mg p.o. at bedtime, DC Ativan, Valium, and amitriptyline. Will make adjustments and continue to follow. Hypocalcemia-stable continue to follow - Time Time Spent with patient: 15-24 minutes - Inpatient Certification Based on my medical assessment, after consideration of the patient's comorbidities, presenting symptoms, or acuity I expect that the services needed warrant INPATIENT care.: Yes I certify that my determination is in accordance with my understanding of Medicare's requirements for reasonable and necessary INPATIENT services [42 CFR 412.3e].: Yes Medical Necessity: Other - Titrate antipsychotic and antidepressants
[2019-05-18] MEDS: DIVALPROEX SODIUM 500 MG TAB.SR.24H PO SCH (08:23)
[2019-05-18] MEDS ORDERED: VENLAFAXINE HCL 75 MG CAP.SR.24H PO SCH (10:00)
[2019-05-18] MEDS ORDERED: (PENDING PHARMACY ID) (Lisinopril [Prinivil] 20 MG) PO SCH (10:00)
[2019-05-18] MEDS ORDERED: VENLAFAXINE HCL 300 MG PO SCH (10:00)
[2019-05-18] MEDS: FERROUS SULFATE 325 MG TABLET PO SCH (10:56)
[2019-05-18] MEDS: FOLIC ACID 1 MG TABLET PO SCH (10:56)
[2019-05-18] MEDS: LISINOPRIL 10 MG TABLET PO SCH (10:56)
[2019-05-18] MEDS: METOPROLOL TARTRATE 25 MG TABLET PO SCH ×2 (10:56→21:28)
[2019-05-18] MEDS: THIAMINE HCL 100 MG TABLET PO SCH (10:56)
[2019-05-18] MEDS: VENLAFAXINE HCL 75 MG CAP.SR.24H PO SCH (10:57)
[2019-05-18] MEDS: NICOTINE 7 MG/24 HR PATCH.TD24 TD SCH (10:57)
[2019-05-18] MEDS: BUSPIRONE HCL 10 MG TABLET PO SCH ×2 (10:57→21:29)
[2019-05-18] MEDS: NADOLOL 40 MG TABLET PO SCH (21:28)
[2019-05-18] MEDS: PANTOPRAZOLE SODIUM 40 MG TABLET.DR PO SCH (21:28)
[2019-05-18] MEDS: SIMVASTATIN 40 MG TABLET PO SCH (21:29)
[2019-05-18] MEDS ORDERED: CLONIDINE HCL 0.1 MG TABLET PO SCH (22:00)
[2019-05-18] MEDS ORDERED: DIVALPROEX SODIUM 500 MG TAB.SR.24H PO SCH (22:00)
[2019-05-19] MEDS ORDERED: DIAZEPAM 5 MG TABLET PO PRN (05:37)
[2019-05-19] MEDS: DIVALPROEX SODIUM 500 MG TAB.SR.24H PO SCH (07:57)
--- NOTE | 2019-05-19 08:24 | PDOC DISCHARGE SUMMARY ---
Impression - Admit/DC Date/PCP Admission Date/Primary Care Provider: 05/13/19 22:11 Discharge Date: 05/19/19 - Discharge Diagnosis (1) Alcoholic gastritis with bleeding Is this a current diagnosis for this admission?: Yes (2) Portal hypertension with esophageal varices Is this a current diagnosis for this admission?: Yes (3) Suicidal ideation Is this a current diagnosis for this admission?: Yes (4) Hypocalcemia Is this a current diagnosis for this admission?: Yes - Assessment Summary: 05/18/2019- Alcoholic gastritis with bleeding-continue proton pump inhibitor. No further bleeding signs and symptoms at this time. Continue to follow Portal hypertension with esophageal varices-numerous esophageal and gastric varices noted on endoscopy. No active bleeding at this time. Continue to follow Suicidal ideation-no suicidal ideation at this time. Patient has been seen by psychiatry. Recommendations to decrease Effexor 150 mg p.o. daily, BuSpar 5 mg p.o. twice daily, clonidine 0.1 mg p.o. at bedtime, DC Ativan, Valium, and amitriptyline. Will make adjustments and continue to follow. Hypocalcemia-stable continue to follow - Additional Information Resuscitation Status: Full Code Discharge Diet: As Tolerated Discharge Activity: Activity As Tolerated Referrals: LILLI LOPEZ MD [NO LOCAL MD] - 06/01/19 2:00 pm Prescriptions: Buspirone HCl [Buspar 10 mg Tablet] 5 mg PO Q12 #60 tablet Clonidine HCl [Catapres 0.1 mg Tablet] 0.1 mg PO QHS #30 tablet Nadolol [Corgard 40 mg Tablet] 20 mg PO QHS #30 tablet Divalproex Sodium [Depakote ER] 500 mg PO QAM #30 Divalproex Sodium [Depakote ER 500 mg Tab.sr] 500 mg PO QHS #30 tab.sr.24h Venlafaxine HCl ER [Effexor Xr 75 mg Cap.sr] 150 mg PO DAILY #60 cap.sr.24h Home Medications: Ferrous Sulfate [Iron] 325 mg PO DAILY 05/14/19 Hydroxyzine Pamoate [Vistaril 50 mg Capsule] 100 mg PO Q6HP PRN 05/14/19 Lisinopril [Prinivil] 20 mg PO DAILY 05/14/19 Metoprolol Tartrate [Lopressor 25 mg Tablet] 25 mg PO Q12 05/14/19 Montelukast Sodium [Singulair 10 mg Tablet] 10 mg PO DAILY 05/14/19 Simvastatin [Zocor 20 mg Tablet] 20 mg PO QHS 05/14/19 Testosterone [Androgel] 1 pump TD DAILY 05/14/19 Buspirone HCl [Buspar 10 mg Tablet] 5 mg PO Q12 #60 tablet 05/19/19 Clonidine HCl [Catapres 0.1 mg Tablet] 0.1 mg PO QHS #30 tablet 05/19/19 Divalproex Sodium [Depakote ER 500 mg Tab.sr] 500 mg PO QHS #30 tab.sr.24h 05/19/19 Divalproex Sodium [Depakote ER] 500 mg PO QAM #30 05/19/19 Nadolol [Corgard 40 mg Tablet] 20 mg PO QHS #30 tablet 05/19/19 Venlafaxine HCl ER [Effexor Xr 75 mg Cap.sr] 150 mg PO DAILY #60 cap.sr.24h 05/19/19 History of Present Illiness History of Present Illness: DANIA BARCLAY is a 58 year old male presented to the ER with a history of bipolarism, esophageal ulcer, Celina-Clemente tear, episodic alcohol binging and hypertension. Hospital Course Hospital Course: Patient presented to ER with a history of bipolar as well as alcoholic intoxication and binge drinking. He was severely intoxicated with 12 hours of epigastric pain, nausea and vomiting and an unclear quantity of coffee-ground emesis on presentation to the ER. He was found to be a poor historian at that time but he did have dried blood around his mouth. Hemoglobin was remarkably normal with no coagulopathy or thrombocytopenia. He was started on IV Pepcid and admitted per the hospitalist group. Patient was monitored for any seizure type activity secondary to withdrawal and was evaluated by psychiatric personnel for possible suicidal ideation. They found patient not to be suicidal at this time and will require outpatient psychiatric treatment. We have made changes to his home medications and placed him on Depakote 500 mg p.o. twice daily, decrease his Effexor to 150 mg p.o. daily, clonidine 0.1 mg at bedtime for sleep, and BuSpar 5 mill grams p.o. twice daily. Patient will be discharged at this time and most likely will present to outpatient treatment and self admit. Patient is in agreement with plan of care. Physical Exam Vital Signs: Temp Pulse Resp BP Pulse Ox 97.8 F 80 18 138/90 H 97 05/19/19 07:30 05/19/19 07:30 05/19/19 07:30 05/19/19 07:30 05/19/19 07:30 Intake & Output 05/18/19 05/19/19 05/20/19 06:59 06:59 06:59 Intake Total 1780 1240 Output Total 0 Balance 1780 1240 Weight 102.7 kg 102.5 kg General appearance: PRESENT: no acute distress, well-developed, well-nourished Head exam: PRESENT: atraumatic, normocephalic Eye exam: PRESENT: conjunctiva pink, EOMI, PERRLA. ABSENT: scleral icterus Ear exam: PRESENT: normal external ear exam Mouth exam: PRESENT: moist, tongue midline Neck exam: ABSENT: carotid bruit, JVD, lymphadenopathy, thyromegaly Respiratory exam: PRESENT: clear to auscultation helen. ABSENT: rales, rhonchi, wheezes Cardiovascular exam: PRESENT: RRR. ABSENT: diastolic murmur, rubs, systolic murmur Pulses: PRESENT: normal dorsalis pedis pul Vascular exam: PRESENT: normal capillary refill GI/Abdominal exam: PRESENT: normal bowel sounds, soft. ABSENT: distended, guarding, mass, organolmegaly, rebound, tenderness Rectal exam: PRESENT: deferred Extremities exam: PRESENT: full ROM. ABSENT: calf tenderness, clubbing, pedal edema Neurological exam: PRESENT: alert, awake, oriented to person, oriented to place, oriented to time, oriented to situation, CN II-XII grossly intact. ABSENT: motor sensory deficit Psychiatric exam: PRESENT: appropriate affect, normal mood. ABSENT: homicidal ideation, suicidal ideation Skin exam: PRESENT: dry, intact, warm. ABSENT: cyanosis, rash Results Laboratory Results: WBC 6.9 10^3/uL (4.0-10.5) 05/18/19 03:50 RBC 4.38 10^6/uL (4.35-5.55) 05/18/19 03:50 Hgb 11.6 g/dL (13.5-17.0) L 05/18/19 03:50 Hct 34.0 % (37.9-51.0) L 05/18/19 03:50 MCV 78 fl (80-97) L 05/18/19 03:50 MCH 26.5 pg (27.0-33.4) L 05/18/19 03:50 MCHC 34.1 g/dL (32.0-36.0) 05/18/19 03:50 RDW 22.4 % (11.5-14.0) H 05/18/19 03:50 Plt Count 165 10^3/uL (150-450) 05/18/19 03:50 Lymph % (Auto) 22.3 % (13-45) 05/14/19 05:52 [place] % (Auto) 8.0 % (3-13) 05/14/19 05:52 Eos % (Auto) 1.5 % (0-6) 05/14/19 05:52 Baso % (Auto) 0.6 % (0-2) 05/14/19 05:52 Absolute Neuts (auto) 5.5 10^3/uL (1.7-8.2) 05/14/19 05:52 Absolute Lymphs (auto) 1.8 10^3/uL (0.5-4.7) 05/14/19 05:52 Absolute Monos (auto) 0.7 10^3/uL (0.1-1.4) 05/14/19 05:52 Absolute Eos (auto) 0.1 10^3/uL (0.0-0.6) 05/14/19 05:52 Absolute Basos (auto) 0.0 10^3/uL (0.0-0.2) 05/14/19 05:52 Seg Neutrophils % 67.6 % (42-78) 05/14/19 05:52 Platelet Comment ADEQUATE 05/14/19 05:52 Hypochromasia SLIGHT 05/14/19 05:52 Anisocytosis 3+ 05/14/19 05:52 Microcytosis SLIGHT 05/14/19 05:52 Target Cells SLIGHT 05/13/19 17:24 Ovalocytes 1+ 05/14/19 05:52 PT 12.6 SEC (11.4-15.4) 05/13/19 19:30 INR 0.94 05/13/19 19:30 APTT 29.4 SEC (23.5-35.8) 05/13/19 19:30 Sodium 134.1 mmol/L (137-145) L 05/18/19 03:50 Potassium 3.7 mmol/L (3.6-5.0) 05/18/19 03:50 Chloride 103 mmol/L (98-107) 05/18/19 03:50 Carbon Dioxide 23 mmol/L (22-30) 05/18/19 03:50 Anion Gap 8 (5-19) 05/18/19 03:50 BUN 11 mg/dL (7-20) 05/18/19 03:50 Creatinine 0.77 mg/dL (0.52-1.25) 05/18/19 03:50 Est GFR ( Amer) > 60 (>60) 05/18/19 03:50 Est GFR (MDRD) Non-Af > 60 (>60) 05/18/19 03:50 Glucose 117 mg/dL (75-110) H 05/18/19 03:50 Calcium 8.5 mg/dL (8.4-10.2) 05/18/19 03:50 Phosphorus 3.8 mg/dL (2.5-4.5) 05/13/19 17:24 Total Bilirubin 0.3 mg/dL (0.2-1.3) 05/14/19 05:52 Direct Bilirubin 0.1 mg/dL (0.0-0.4) 05/14/19 05:52 Neonat Total Bilirubin Not Reportable 05/14/19 05:52 Neonat Direct Bilirubin Not Reportable 05/14/19 05:52 Neonat Indirect Bili Not Reportable 05/14/19 05:52 AST 34 U/L (17-59) 05/14/19 05:52 ALT 32 U/L (<50) 05/14/19 05:52 Alkaline Phosphatase 46 U/L (38-126) 05/14/19 05:52 Total Protein 6.1 g/dL (6.3-8.2) L 05/14/19 05:52 Albumin 3.3 g/dL (3.5-5.0) L 05/14/19 05:52 Lipase 38.7 U/L (23-300) 05/13/19 17:24 Urine Color STRAW 05/13/19 17:08 Urine Appearance CLEAR 05/13/19 17:08 Urine pH 9.0 (5.0-9.0) 05/13/19 17:08 Ur Specific [place] 1.005 05/13/19 17:08 Urine Protein NEGATIVE mg/dL (NEGATIVE) 05/13/19 17:08 Urine Glucose (UA) NEGATIVE mg/dL (NEGATIVE) 05/13/19 17:08 Urine Ketones NEGATIVE mg/dL (NEGATIVE) 05/13/19 17:08 Urine Blood LARGE (NEGATIVE) H 05/13/19 17:08 Urine Nitrite NEGATIVE (NEGATIVE) 05/13/19 17:08 Urine Bilirubin NEGATIVE (NEGATIVE) 05/13/19 17:08 Urine Urobilinogen NEGATIVE mg/dL (<2.0) 05/13/19 17:08 Ur Leukocyte Esterase NEGATIVE (NEGATIVE) 05/13/19 17:08 Urine WBC (Auto) 0 /HPF 05/13/19 17:08 Urine RBC (Auto) 2 /HPF 05/13/19 17:08 Urine Bacteria (Auto) TRACE /HPF 05/13/19 17:08 Urine Ascorbic Acid NEGATIVE (NEGATIVE) 05/13/19 17:08 POC Stool Occult Blood NEGATIVE (NEGATIVE) 05/13/19 18:40 Urine Opiates Screen Cancelled 05/13/19 17:08 Urine Opiates Screen NEGATIVE 05/13/19 17:08 Urine Methadone Screen Cancelled 05/13/19 17:08 Urine Methadone Screen NEGATIVE 05/13/19 17:08 Ur Barbiturates Screen Cancelled 05/13/19 17:08 Ur Barbiturates Screen NEGATIVE 05/13/19 17:08 Valproic Acid 13.6 ug/mL (50.0-120.0) L 05/19/19 04:53 Ur Phencyclidine Scrn Cancelled 05/13/19 17:08 Ur Phencyclidine Scrn NEGATIVE 05/13/19 17:08 Ur Amphetamines Screen Cancelled 05/13/19 17:08 Ur Amphetamines Screen NEGATIVE 05/13/19 17:08 U Benzodiazepines Scrn Cancelled 05/13/19 17:08 U Benzodiazepines Scrn NEGATIVE 05/13/19 17:08 Urine Cocaine Screen Cancelled 05/13/19 17:08 Urine Cocaine Screen NEGATIVE 05/13/19 17:08 U Marijuana (THC) Screen Cancelled 05/13/19 17:08 U Marijuana (THC) Screen NEGATIVE 05/13/19 17:08 Serum Alcohol 369 mg/dL (NONE DETECTED) H* 05/13/19 17:08 Impressions: Chest X-Ray 05/13/19 20:21 IMPRESSION: No acute disease. copyright 2011 [employer]- All Rights Reserved Abdomen Ultrasound 05/15/19 00:00 IMPRESSION: NO ACUTE FINDINGS. No evidence for portal venous hypertension. Plan Time Spent: Greater than 30 Minutes Stroke Is this a Stroke Patient?: No Acute Heart Failure - Is this a Heart Failure Patient?: No
[2019-05-19] MEDS: IPRATROPIUM/ALBUTEROL 0.5-2.5 MG/3 ML AMPUL NEB SCH (08:47)
[2019-05-19 08:54] VITALS: BP 145/97
[2019-05-19] MEDS: NICOTINE 7 MG/24 HR PATCH.TD24 TD SCH (09:41)
[2019-05-19] MEDS: BUSPIRONE HCL 10 MG TABLET PO SCH (09:43)
[2019-05-19] MEDS: FERROUS SULFATE 325 MG TABLET PO SCH (09:43)
[2019-05-19] MEDS: METOPROLOL TARTRATE 25 MG TABLET PO SCH (09:43)
[2019-05-19] MEDS: VENLAFAXINE HCL 75 MG CAP.SR.24H PO SCH (09:43)
[2019-05-19] MEDS: FOLIC ACID 1 MG TABLET PO SCH (09:43)
[2019-05-19] MEDS: THIAMINE HCL 100 MG TABLET PO SCH (09:43)
[2019-05-19] MEDS: LISINOPRIL 10 MG TABLET PO SCH (09:44)
== END 2019-05-19 12:00 | disposition home or self-care (01) | DRG 378 ==
LOC: ER 16:58 → EH 22:11 → 3N 05-14 04:05
PROVIDERS: ADMIT Internal Medicine; ATTEND Internal Medicine
PROC: 0DJ08ZZ Inspection of Upper Intestinal Tract, Via Natural or Artificial Opening Endoscopic (ICD-10-PCS; principal; 2019-05-14 13:30)
DX: K29.21 Alcoholic gastritis with bleeding (principal); K76.6 Portal hypertension; R45.851 Suicidal ideations; K29.80 Duodenitis without bleeding; K44.9 Diaphragmatic hernia without obstruction or gangrene; K92.0 Hematemesis; F31.9 Bipolar disorder, unspecified; I10 Essential (primary) hypertension; F10.129 Alcohol abuse with intoxication, unspecified; Y90.8 Blood alcohol level of 240 mg/100 ml or more; F43.10 Post-traumatic stress disorder, unspecified; E83.51 Hypocalcemia; F17.200 Nicotine dependence, unspecified, uncomplicated; K31.89 Other diseases of stomach and duodenum; I85.10 Secondary esophageal varices without bleeding; Z62.810 Personal history of physical and sexual abuse in childhood; Z71.41 Alcohol abuse counseling and surveillance of alcoholic; Z82.49 Family history of ischemic heart disease and other diseases of the circulatory system
CPT/HCPCS: 36415; 43235; 71046; 731; 76705; 80048; 80053; 80164; 80307; 81001; 83690; 84100; 85025; 85027; 85610; 85730; 93005; 93010; 93976; 94640; 96361; 96374; 96375; 99285; J0171; J0610; J1200; J1610; J2001; J2060; J2250; J2310; J2405; J2704; J3010; J3360; J3490; J7030; J7620; S0164

== ENCOUNTER 2019-06-08 17:44 | Inpatient (IN) | payer BC ==
[2019-06-08] MEDS ORDERED: PANTOPRAZOLE SODIUM 40 MG VIAL IV ONE (18:33)
[2019-06-08] MEDS ORDERED: NORMAL SALINE 1000 ML 1,000 ML IV ONE (18:34)
[2019-06-08] MEDS ORDERED: ONDANSETRON HCL INJ/PF 4 MG/2 ML SDV IV ONE ×2 (18:41→22:04)
--- NOTE | 2019-06-08 18:45 | ER Document Report ---
ED General - General Chief Complaint: Vomiting Stated Complaint: VOMITING BLOOD Time Seen by Provider: 06/08/19 18:31 TRAVEL OUTSIDE OF THE [place] IN LAST 30 DAYS: No - HPI Notes: Patient is a 58-year-old gentleman comes into the emergency department for evaluation of vomiting up dark brown fluid, dark stools, consistent with hematemesis. He has a history of esophageal varices. He states this has been going on for 2 days. He has been having epigastric pain as well. He admits he has been binge drinking. He has been drinking for the last 5 days, states he is self-medicating for his bipolar disorder. He stopped taking all of his bipolar medications. He denies any suicidal or homicidal ideation. He denies the use of any other illicit drugs. - Related Data Allergies/Adverse Reactions: No Known Allergies Allergy (Verified 06/08/19 19:12) Home Medications: Protonix 40 mg at bedtime, clonidine 0.1 mg at bedtime, Effexor 75 mg daily, metoprolol 25 mg twice daily, Depakote 500 mg at bedtime, Trileptal 300 mg, 1-1/2 tablets twice daily, Zyprexa 5 mg at bedtime, nadolol 40 mg, half tablet at bedtime, Singulair 10 mg daily, BuSpar 5 mg twice a day, lisinopril 20 mg daily, Vistaril 100 mg every 6 hours as needed, pravastatin 20 mg daily Past Medical History - General Information source: Patient - Social History Smoking Status: Current Some Day Smoker Frequency of alcohol use: Heavy Drug Abuse: None Family History: Reviewed & Not Pertinent Patient has suicidal ideation: No Patient has homicidal ideation: No - Past Medical History Cardiac Medical History: Reports: Hx Hypercholesterolemia, Hx Hypertension Pulmonary Medical History: Denies: Hx Tuberculosis Neurological Medical History: Denies: Hx Seizures Renal/ Medical History: Denies: Hx Peritoneal Dialysis GI Medical History: Reports: Hx Gastritis, Hx Gastroesophageal Reflux Disease, Hx Pancreatitis, Hx Endoscopy, Other - Esophagitis Psychiatric Medical History: Reports: Hx Anxiety, Hx Bipolar Disorder, Hx Depression, Hx Post Traumatic Stress Disorder Past Surgical History: Reports: Hx Orthopedic Surgery - Left knee x 2 - Immunizations Hx Diphtheria, Pertussis, Tetanus Vaccination: Yes - 05/14/12 Review of Systems - Review of Systems Constitutional: No symptoms reported EENT: No symptoms reported Cardiovascular: No symptoms reported Respiratory: No symptoms reported Gastrointestinal: See HPI Genitourinary: No symptoms reported Musculoskeletal: No symptoms reported Skin: No symptoms reported Neurological/Psychological: No symptoms reported Physical Exam - Vital signs Vitals: Temp Pulse Resp BP 98.0 F 96 20 136/98 H 06/08/19 17:58 06/08/19 17:58 10 17:58 06/08/19 17:58 - Notes Notes: Vital signs reviewed, please refer to chart. Head is normocephalic, atraumatic. Pupils equal round, reactive to light. Neck is supple without meningismus. Heart is regular rate and rhythm. Lungs are clear to auscultation bilaterally. Abdomen is soft, moderately tender in the epigastrium without rebound or guarding, normoactive bowel sounds throughout. Extremities without cyanosis, clubbing. Posterior calves are nontender. Peripheral pulses are equal. Skin is warm and dry. Patient is awake, alert, neurological exam is nonfocal. Rectal exam is performed with ZACHARY Macedo, present in room. Good rectal tone, no clear external abnormalities. Stool is dark and heme positive. Course - Re-evaluation Re-evalutation: 06/08/19 18:45 Patient presents to the emergency department for evaluation. He was placed on a pile header. Laboratory investigations were obtained. He was given IV fluids, started on Protonix and Protonix drip. We will continue to monitor. 06/08/19 23:32 Patient continued to have emesis here. He vomited up 300 cc of yellow liquid, which appears to have some coffee grounds noted. He is heme positive. I am more concerned about the possibility of an alcoholic gastritis in this patient. I do not have a strong suspicion that this is variceal bleeding, given the low volume, and the character of the emesis. I spoke with Dr. Dacosta, he will admit the patient for further care. - Vital Signs Vital signs: Temp Pulse Resp BP Pulse Ox 98.0 F 96 11 L 143/98 H 98 06/08/19 17:58 06/08/19 17:58 06/08/19 21:42 06/08/19 21:42 06/08/19 21:42 - Laboratory Result Diagrams: 06/08/19 18:06 06/08/19 18:06 Laboratory results interpreted by me: 06/08/19 06/08/19 18:06 19:24 WBC 11.3 H MCV 79 L MCH 26.3 L RDW 18.8 H Urine Protein 30 H Urine Blood MODERATE H - Diagnostic Test Radiology reviewed: Reports reviewed Radiology results interpreted by me: 06/08/19 21:48 Abdomen/Pelvis CT 06/08/19 20:33 IMPRESSION: 1. Significant distal esophageal wall thickening/edema, consistent with acute esophagitis. There is a hiatal hernia, which likely is contributed to the esophagitis. EGD to evaluate for Angulo's esophagus and neoplasm should be considered. 2. Dilated common bile duct and slightly dilated intrahepatic bile ducts, new since 05/15/2019. Cannot exclude a distal common bile duct stone or stricture. Note that no gallstones were identified on the previous ultrasound. 3. Pancreatic head calcifications, suggesting prior pancreatitis. Pancreatic duct is slightly distended. 4. Colonic diverticulosis but no evidence for diverticulitis 5. Other chronic findings as described. Discharge - Discharge Clinical Impression: Alcohol abuse, Heme positive stool Alcoholic gastritis with bleeding Qualifiers: Chronicity: unspecified Qualified Code(s): K29.21 - Alcoholic gastritis with bleeding Hematemesis Qualifiers: Nausea presence: with nausea Qualified Code(s): K92.0 - Hematemesis Condition: Stable Disposition: ADMITTED INPATIENT Admitting Provider: Praneeth (Hospitalist) Unit Admitted: [facility]
[2019-06-08 18:46] LABS: ABSOLUTE BASOPHILS # (AUTO) 0.1 10^3/uL (0.0-0.2); ABSOLUTE EOSINOPHILS # (AUTO) 0.2 10^3/uL (0.0-0.6); ABSOLUTE LYMPHOCYTES (AUTO) 2.5 10^3/uL (0.5-4.7); ABSOLUTE NEUT (AUTO) 7.5 10^3/uL (1.7-8.2); BASOPHILS % (AUTO) 0.8 % (0-2); EOSINOPHILS % (AUTO) 1.5 % (0-6); HEMOGLOBIN 13.6 g/dL (13.5-17.0); LYMPHOCYTES % (AUTO) 22.4 % (13-45); MEAN CORPUSCULAR HEMOGLOBIN 26.3 pg (27.0-33.4); MEAN CORPUSCULAR HGB CONC 33.1 g/dL (32.0-36.0); MEAN CORPUSCULAR VOLUME 79 fl (80-97); MONOCYTES % (AUTO) 9.2 % (3-13); PLATELET COUNT 319 10^3/uL (150-450); RED BLOOD COUNT 5.18 10^6/uL (4.35-5.55); RED CELL DISTRIBUTION WIDTH 18.8 % (11.5-14.0); SEGMENTED NEUTROPHILS % (AUTO) 66.1 % (42-78); TOTAL CELLS COUNTED % (AUTO) 100 %; WHITE BLOOD COUNT 11.3 10^3/uL (4.0-10.5)
[2019-06-08 18:52] LABS: ALBUMIN 3.9 g/dL (3.5-5.0); ALCOHOL 237 mg/dL (NONE DETECTED); ALKALINE PHOSPHATASE 60 U/L (38-126); ANION GAP 17 (5-19); ASPARTATE AMINO TRANSFERASE 34 U/L (17-59); BILIRUBIN,DIRECT 0.2 mg/dL (0.0-0.4); BILIRUBIN,TOTAL 0.4 mg/dL (0.2-1.3); BLOOD UREA NITROGEN 10 mg/dL (7-20); CALCIUM 8.7 mg/dL (8.4-10.2); CARBON DIOXIDE 22 mmol/L (22-30); CHLORIDE 104 mmol/L (98-107); GLUCOSE 102 mg/dL (75-110); POTASSIUM 3.7 mmol/L (3.6-5.0); TOTAL PROTEIN 6.8 g/dL (6.3-8.2)
[2019-06-08 18:53] LABS: INTERNATIONAL RATION (INR) 0.98
[2019-06-08 18:54] LABS: PARTIAL THROMBOPLASTIN TIME 32.3 SEC (23.5-35.8)
[2019-06-08 19:05] LABS: ANISOCYTOSIS 1+
[2019-06-08 19:06] LABS: OVALOCYTES SLIGHT; PLATELET COMMENT ADEQUATE; SCHISTOCYTES SLIGHT
[2019-06-08] MEDS: PANTOPRAZOLE SODIUM 40 MG VIAL IV PRN ×2 (19:17→22:44)
[2019-06-08 19:59] LABS: APPEARANCE,URINE CLEAR; BILIRUBIN,URINE NEGATIVE (NEGATIVE); COLOR,URINE STRAW; GLUCOSE, URINE NEGATIVE (NEGATIVE); KETONES,URINE NEGATIVE (NEGATIVE); LEUKOCYTE ESTERASE,URINE NEGATIVE (NEGATIVE); NITRITE,URINE NEGATIVE (NEGATIVE); PROTEIN,URINE 30 mg/dL (NEGATIVE); URINE SPECIFIC GRAVITY 1.008; UROBILINOGEN,URINE NEGATIVE mg/dL (<2.0)
--- NOTE | 2019-06-08 21:32 | RADIOLOGY REPORT (SQ) ---
EXAM DESCRIPTION: RadLex: CT ABDOMEN PELVIS WITH IV CONTRAST CLINICAL HISTORY: 58 years Male; epigastric pain, hematemesis TECHNIQUE: CT of the abdomen and pelvis using intravenous contrast. All CT scans at this facility use dose modulation, iterative reconstruction, and/or weight based dosing when appropriate to reduce radiation dose to as low as reasonably achievable. COMPARISON: Ultrasound 05/15/2019. No previous CT. FINDINGS: Abdomen: There is significant circumferential wall thickening/edema of the distal esophagus, with mild mucosal enhancement. The extent of the wall edema is incompletely visualized and may extend higher in the thoracic esophagus. There is a hiatal hernia. Stomach is unremarkable, without adjacent edema or significant wall thickening. Liver: Mild intrahepatic ductal prominence. Common bile duct measures up to 13 mm. This is a significant change since 05/15/2019 ultrasound. Gallbladder:Nondistended Pancreas: Several coarse calcifications in the head, suggesting chronic pancreatitis. Pancreatic duct in the body measures 4 mm, slightly distended. No acute edema. Spleen:Within normal limits Right kidney:No hydronephrosis. No focal lesion. Left kidney: 1.1 and 1.5 cm lower pole cysts. No hydronephrosis. Adrenal glands:Within normal limits Vascular structures:Within normal limits Pelvis: Small bowel:No significant distention. Appendix:Within normal limits Colon: Multiple diverticula, mostly along the sigmoid colon. No acute pericolonic edema or colonic distention. No free intraperitoneal fluid or air. Bones: L4-L5 degenerative disc changes with sclerosis on both sides of the disc. No acute bone findings. Bladder: Unremarkable. No pelvic mass or adenopathy. IMPRESSION: 1. Significant distal esophageal wall thickening/edema, consistent with acute esophagitis. There is a hiatal hernia, which likely is contributed to the esophagitis. EGD to evaluate for Angulo's esophagus and neoplasm should be considered. 2. Dilated common bile duct and slightly dilated intrahepatic bile ducts, new since 05/15/2019. Cannot exclude a distal common bile duct stone or stricture. Note that no gallstones were identified on the previous ultrasound. 3. Pancreatic head calcifications, suggesting prior pancreatitis. Pancreatic duct is slightly distended. 4. Colonic diverticulosis but no evidence for diverticulitis 5. Other chronic findings as described.
[2019-06-08] MEDS ORDERED: PROMETHAZINE HCL INJ 25 MG/1 ML VIAL IV ONE (22:59)
[2019-06-08] MEDS ORDERED: IPRATROPIUM/ALBUTEROL 0.5-2.5 MG/3 ML AMPUL NEB PRN (23:32)
[2019-06-08] MEDS ORDERED: ACETAMINOPHEN 650 MG SUPP.RECT PR PRN (23:32)
[2019-06-08] MEDS ORDERED: MAGNESIUM HYDROXIDE SUSP 30 ML UDCUP PO PRN (23:32)
[2019-06-08] MEDS ORDERED: MAG HYDROX/AL HYDROX/SIMETH SUSP 30 ML UDCUP PO PRN (23:32)
[2019-06-08] MEDS ORDERED: THIAMINE HCL 100 MG, FOLIC ACID 1 MG in NORMAL SALINE 250 ML IV SCH (23:45)
[2019-06-08] MEDS ORDERED: NORMAL SALINE 1000 ML 1,000 ML IV PRN (23:45)
[2019-06-08] MEDS ORDERED: LORAZEPAM INJ 2 MG/1 ML VIAL IV ONE (23:59)
[2019-06-09] MEDS: IPRATROPIUM/ALBUTEROL 0.5-2.5 MG/3 ML AMPUL NEB SCH ×3 (00:13→20:48)
[2019-06-09] MEDS: LORAZEPAM INJ 2 MG/1 ML VIAL IV PRN ×3 (00:14→19:55)
[2019-06-09] MEDS ORDERED: PHYTONADIONE INJ 10 MG/1 ML AMPULE SUBCUT ONE (00:30)
[2019-06-09 00:51] LABS: ABSOLUTE BASOPHILS # (AUTO) 0.1 10^3/uL (0.0-0.2); ABSOLUTE EOSINOPHILS # (AUTO) 0.3 10^3/uL (0.0-0.6); ABSOLUTE LYMPHOCYTES (AUTO) 1.8 10^3/uL (0.5-4.7); ABSOLUTE MONOCYTES (AUTO) 1.1 10^3/uL (0.1-1.4); BASOPHILS % (AUTO) 0.6 % (0-2); EOSINOPHILS % (AUTO) 2.7 % (0-6); HEMATOCRIT 38.8 % (37.9-51.0); HEMOGLOBIN 12.9 g/dL (13.5-17.0); LYMPHOCYTES % (AUTO) 17.9 % (13-45); MEAN CORPUSCULAR HEMOGLOBIN 26.6 pg (27.0-33.4); MEAN CORPUSCULAR HGB CONC 33.3 g/dL (32.0-36.0); MEAN CORPUSCULAR VOLUME 80 fl (80-97); MONOCYTES % (AUTO) 10.6 % (3-13); PLATELET COUNT 276 10^3/uL (150-450); RED BLOOD COUNT 4.86 10^6/uL (4.35-5.55); RED CELL DISTRIBUTION WIDTH 19.1 % (11.5-14.0); SEGMENTED NEUTROPHILS % (AUTO) 68.2 % (42-78); TOTAL CELLS COUNTED % (AUTO) 100 %; WHITE BLOOD COUNT 10.2 10^3/uL (4.0-10.5)
[2019-06-09 01:07] LABS: ANISOCYTOSIS 2+; OVALOCYTES SLIGHT
[2019-06-09 01:08] LABS: PLATELET COMMENT ADEQUATE
[2019-06-09] MEDS ORDERED: THIAMINE HCL INJ 200 MG/2 ML VIAL ONE (01:13)
[2019-06-09] MEDS ORDERED: FOLIC ACID INJ 5 MG/1 ML 10 ML VIAL ONE (01:13)
[2019-06-09] MEDS ORDERED: INFLUENZA QUAD (6MOS+) 2019-20 VAC 0.5 ML SYR IM ONE (03:21)
--- NOTE | 2019-06-09 04:43 | PDOC H&P ---
History of Present Illness Admission Date/PCP: 06/08/19 23:32 Patient complains of: Epigastric pain and nausea History of Present Illness: DANIA BARCLAY is a 58 year old male with a past medical history of bipolar, esophageal ulcer, Celina-Clemente tear, gastritis, duodenitis, portal hypertension, esophageal varices and episodic binge drinking. Patient was discharged to outpatient alcohol rehab 3 weeks ago, but now patient presents with 3 days of epigastric pain, nausea and several episodes of coffee-ground emesis prompting evaluation emergency room where he is found to have Hemoccult positive stool and likely recurrent alcoholic gastritis. He started on a proton pump inhibitor and referred to the hospitalist for admission. Past Medical History Cardiac Medical History: Reports: Hyperlipidema, Hypertension Pulmonary Medical History: Denies: Tuberculosis Neurological Medical History: Denies: Seizures GI Medical History: Reports: Gastroesophageal Reflux Disease, Other - Esophagitis Psychiatric Medical History: Reports: Bipolar Disorder, Depression, Post Traumatic Stress Disorder Past Surgical History Past Surgical History: Reports: Orthopedic Surgery - Left knee x 2 Social History Information Source: Patient, [facility] Smoking Status: Current Every Day Smoker Electronic Cigarette use?: Yes Number of Years Smokin Frequency of Alcohol Use: Heavy Hx Recreational Drug Use: No Drugs: None Hx Prescription Drug Abuse: No - Advance Directive Resuscitation Status: Full Code Family History Family History: Hypertension Parental Family History Reviewed: Yes Children Family History Reviewed: Yes Sibling(s) Family History Reviewed.: Yes Medication/Allergy Home Medications: Hydroxyzine Pamoate [Vistaril 50 mg Capsule] 100 mg PO Q6HP PRN 05/14/19 Lisinopril [Prinivil] 20 mg PO DAILY 05/14/19 Metoprolol Tartrate [Lopressor 25 mg Tablet] 25 mg PO Q12 05/14/19 Montelukast Sodium [Singulair 10 mg Tablet] 10 mg PO DAILY 05/14/19 Testosterone [Androgel] 1 pump TD DAILY 05/14/19 Buspirone HCl [Buspar 10 mg Tablet] 5 mg PO Q12 #60 tablet 05/19/19 Divalproex Sodium [Depakote ER 500 mg Tab.sr] 500 mg PO QHS #30 tab.sr.24h 05/19/19 Nadolol [Corgard 40 mg Tablet] 20 mg PO QHS #30 tablet 05/19/19 Venlafaxine HCl ER [Effexor Xr 75 mg Cap.sr] 150 mg PO DAILY #60 cap.sr.24h 05/19/19 Clonidine HCl [Clonidine HCl ER] 0.1 mg PO QHS 06/08/19 Olanzapine [Zyprexa 5 mg Tablet] 5 mg PO QHS 06/08/19 Oxcarbazepine 450 mg PO BID 06/08/19 Pantoprazole Sodium 40 mg PO QHS 06/08/19 Pravastatin Sodium 20 mg PO DAILY 06/08/19 Allergies/Adverse Reactions: No Known Allergies Allergy (Verified 06/08/19 19:12) Review of Systems Constitutional: PRESENT: as per HPI, anorexia, fatigue. ABSENT: chills Eyes: ABSENT: visual disturbances Ears: ABSENT: hearing changes Cardiovascular: ABSENT: chest pain, dyspnea on exertion, edema, orthropnea, palpitations Respiratory: ABSENT: cough, hemoptysis Gastrointestinal: PRESENT: as per HPI, abdominal pain, bloating, coffee ground emesis, heartburn, nausea, vomiting. ABSENT: constipation Genitourinary: ABSENT: dysuria, hematuria Musculoskeletal: ABSENT: joint swelling Integumentary: ABSENT: rash, wounds Neurological: ABSENT: abnormal gait, abnormal speech, confusion, dizziness, focal weakness, syncope Psychiatric: PRESENT: depression - Denies homicidal or suicidal ideation. ABSEN T: anxiety, homidical ideation, suicidal ideation Physical Exam Vital Signs: Temp Pulse Resp BP Pulse Ox 98.8 F 98 16 161/95 H 97 06/09/19 03:23 06/09/19 03:23 06/09/19 03:23 06/09/19 03:23 06/09/19 03:23 Intake & Output 06/07/19 06/08/19 06/09/19 11:59 11:59 11:59 Weight 99.79 kg General appearance: PRESENT: cooperative, disheveled, mild distress, well- developed, well-nourished Head exam: PRESENT: atraumatic, normocephalic Eye exam: PRESENT: conjunctiva pink, EOMI, PERRLA. ABSENT: scleral icterus Ear exam: PRESENT: normal external ear exam Mouth exam: PRESENT: moist, tongue midline Neck exam: ABSENT: carotid bruit, JVD, lymphadenopathy, thyromegaly Respiratory exam: PRESENT: clear to auscultation helen. ABSENT: rales, rhonchi, wheezes Cardiovascular exam: PRESENT: tachycardia. ABSENT: diastolic murmur, rubs, systolic murmur Pulses: PRESENT: normal dorsalis pedis pul Vascular exam: PRESENT: normal capillary refill GI/Abdominal exam: PRESENT: normal bowel sounds, soft. ABSENT: distended, guarding, mass, organolmegaly, rebound, tenderness Rectal exam: PRESENT: deferred Extremities exam: PRESENT: full ROM. ABSENT: calf tenderness, clubbing, pedal edema Neurological exam: PRESENT: alert, altered, awake, oriented to person, oriented to place, oriented to time, oriented to situation, CN II-XII grossly intact. ABSENT: motor sensory deficit Psychiatric exam: PRESENT: appropriate affect, normal mood. ABSENT: homicidal ideation, suicidal ideation Skin exam: PRESENT: dry, intact, warm. ABSENT: cyanosis, rash Results Laboratory Results: 06/09/19 00:32 06/08/19 18:06 06/08/19 06/08/19 06/08/19 18:06 18:06 18:58 WBC 11.3 H RBC 5.18 Hgb 13.6 Hct 41.0 MCV 79 L MCH 26.3 L MCHC 33.1 RDW 18.8 H Plt Count 319 Seg Neutrophils % 66.1 Sodium 143.3 Potassium 3.7 Chloride 104 Carbon Dioxide 22 Anion Gap 17 BUN 10 Creatinine 0.84 Est GFR ( Amer) > 60 Glucose 102 Calcium 8.7 Total Bilirubin 0.4 AST 34 Alkaline Phosphatase 60 Ammonia 11.1 Total Protein 6.8 Albumin 3.9 Lipase 76.0 Urine Color Urine Appearance Urine pH Ur Specific [place] Urine Protein Urine Glucose (UA) Urine Ketones Urine Blood Urine Nitrite Ur Leukocyte Esterase Urine RBC (Auto) 06/08/19 06/09/19 19:24 00:32 WBC 10.2 RBC 4.86 Hgb 12.9 L Hct 38.8 MCV 80 MCH 26.6 L MCHC 33.3 RDW 19.1 H Plt Count 276 Seg Neutrophils % 68.2 Sodium Potassium Chloride Carbon Dioxide Anion Gap BUN Creatinine Est GFR ( Amer) Glucose Calcium Total Bilirubin AST Alkaline Phosphatase Ammonia Total Protein Albumin Lipase Urine Color STRAW Urine Appearance CLEAR Urine pH 9.0 Ur Specific [place] 1.008 Urine Protein 30 H Urine Glucose (UA) NEGATIVE Urine Ketones NEGATIVE Urine Blood MODERATE H Urine Nitrite NEGATIVE Ur Leukocyte Esterase NEGATIVE Urine RBC (Auto) 6 Impressions: Abdomen/Pelvis CT 06/08/19 20:33 IMPRESSION: 1. Significant distal esophageal wall thickening/edema, consistent with acute esophagitis. There is a hiatal hernia, which likely is contributed to the esophagitis. EGD to evaluate for Angulo's esophagus and neoplasm should be considered. 2. Dilated common bile duct and slightly dilated intrahepatic bile ducts, new since 05/15/2019. Cannot exclude a distal common bile duct stone or stricture. Note that no gallstones were identified on the previous ultrasound. 3. Pancreatic head calcifications, suggesting prior pancreatitis. Pancreatic duct is slightly distended. 4. Colonic diverticulosis but no evidence for diverticulitis 5. Other chronic findings as described. Assessment and Plan - Diagnosis (1) Alcoholic gastritis with bleeding Qualifiers: Chronicity: unspecified Qualified Code(s): K29.21 - Alcoholic gastritis with bleeding Is this a current diagnosis for this admission?: Yes Plan: Proton pump inhibitor, consider Sandostatin (2) Alcohol abuse Is this a current diagnosis for this admission?: Yes Plan: Discharge planning consult for inpatient rehab, thiamine, folate, Valium sc heduled and Ativan as needed (3) Hematemesis Qualifiers: Nausea presence: with nausea Qualified Code(s): K92.0 - Hematemesis Is this a current diagnosis for this admission?: Yes Plan: Secondary to #1, proton pump inhibitor, follow-up INR (4) Alcohol intoxication Is this a current diagnosis for this admission?: Yes Plan: Supportive care anticipate withdrawal (5) Portal hypertension with esophageal varices Is this a current diagnosis for this admission?: Yes Plan: Beta-micheline ordered, consider Sandostatin - Time Time Spent with patient: 25-34 minutes - Inpatient Certification Medical Necessity: Need Close Monitoring Due to Risk of Patient Decompensation
[2019-06-09] MEDS ORDERED: LORAZEPAM INJ 2 MG/1 ML VIAL IV ONE (05:00)
[2019-06-09] MEDS: DIAZEPAM INJ 10 MG/2 ML DISP.SYRIN IV SCH ×3 (06:31→21:23)
[2019-06-09] MEDS: HEPARIN SOD (PORCINE) 5,000 UNIT/ML 1 ML VIAL SUBCUT SCH ×3 (06:31→21:23)
[2019-06-09 08:38] LABS: ABSOLUTE BASOPHILS # (AUTO) 0.1 10^3/uL (0.0-0.2); ABSOLUTE EOSINOPHILS # (AUTO) 0.4 10^3/uL (0.0-0.6); ABSOLUTE LYMPHOCYTES (AUTO) 1.8 10^3/uL (0.5-4.7); ABSOLUTE MONOCYTES (AUTO) 0.8 10^3/uL (0.1-1.4); ABSOLUTE NEUT (AUTO) 5.3 10^3/uL (1.7-8.2); BASOPHILS % (AUTO) 0.7 % (0-2); EOSINOPHILS % (AUTO) 4.5 % (0-6); HEMATOCRIT 36.5 % (37.9-51.0); HEMOGLOBIN 12.2 g/dL (13.5-17.0); LYMPHOCYTES % (AUTO) 21.8 % (13-45); MEAN CORPUSCULAR HEMOGLOBIN 26.5 pg (27.0-33.4); MEAN CORPUSCULAR HGB CONC 33.4 g/dL (32.0-36.0); MEAN CORPUSCULAR VOLUME 80 fl (80-97); MONOCYTES % (AUTO) 9.8 % (3-13); PLATELET COUNT 233 10^3/uL (150-450); RED CELL DISTRIBUTION WIDTH 18.3 % (11.5-14.0); SEGMENTED NEUTROPHILS % (AUTO) 63.2 % (42-78); TOTAL CELLS COUNTED % (AUTO) 100 %; WHITE BLOOD COUNT 8.4 10^3/uL (4.0-10.5)
[2019-06-09] MEDS ORDERED: ONDANSETRON HCL INJ/PF 4 MG/2 ML SDV IV PRN (08:38)
[2019-06-09 08:44] LABS: URINE AMPHETAMINES SCREEN NEGATIVE; URINE BARBITURATES SCREEN NEGATIVE; URINE BENZODIAZEPINES SCREEN NEGATIVE; URINE COCAINE SCREEN NEGATIVE; URINE MARIJUANA (THC) SCREEN NEGATIVE; URINE METHADONE SCREEN NEGATIVE; URINE PHENCYCLIDINE SCREEN NEGATIVE
[2019-06-09 08:59] LABS: ANISOCYTOSIS 2+; OVALOCYTES SLIGHT; PLATELET COMMENT ADEQUATE
[2019-06-09 09:00] LABS: ALBUMIN 3.2 g/dL (3.5-5.0); ALKALINE PHOSPHATASE 58 U/L (38-126); ANION GAP 8 (5-19); ASPARTATE AMINO TRANSFERASE 27 U/L (17-59); BILIRUBIN,DIRECT 0.1 mg/dL (0.0-0.4); BILIRUBIN,TOTAL 0.6 mg/dL (0.2-1.3); BLOOD UREA NITROGEN 10 mg/dL (7-20); CALCIUM 7.8 mg/dL (8.4-10.2); CARBON DIOXIDE 25 mmol/L (22-30); CHLORIDE 105 mmol/L (98-107); GLUCOSE 88 mg/dL (75-110); PHOSPHORUS 3.9 mg/dL (2.5-4.5); POTASSIUM 4.1 mmol/L (3.6-5.0)
[2019-06-09] MEDS ORDERED: METOPROLOL TARTRATE 25 MG TABLET PO SCH ×2 (10:00→22:00)
[2019-06-09] MEDS: NORMAL SALINE 100 ML with PANTOPRAZOLE SODIUM 80 MG IV PRN ×4 (10:07→21:23)
[2019-06-09] MEDS: PROMETHAZINE HCL INJ 25 MG/1 ML VIAL IV PRN ×2 (12:25→19:55)
[2019-06-09 15:45] LABS: ABSOLUTE BASOPHILS # (AUTO) 0.1 10^3/uL (0.0-0.2); ABSOLUTE EOSINOPHILS # (AUTO) 0.4 10^3/uL (0.0-0.6); ABSOLUTE LYMPHOCYTES (AUTO) 1.7 10^3/uL (0.5-4.7); ABSOLUTE MONOCYTES (AUTO) 0.7 10^3/uL (0.1-1.4); ABSOLUTE NEUT (AUTO) 4.4 10^3/uL (1.7-8.2); BASOPHILS % (AUTO) 0.9 % (0-2); EOSINOPHILS % (AUTO) 5.4 % (0-6); HEMATOCRIT 36.8 % (37.9-51.0); HEMOGLOBIN 12.4 g/dL (13.5-17.0); LYMPHOCYTES % (AUTO) 23.6 % (13-45); MEAN CORPUSCULAR HGB CONC 33.8 g/dL (32.0-36.0); MEAN CORPUSCULAR VOLUME 80 fl (80-97); MONOCYTES % (AUTO) 9.7 % (3-13); PLATELET COUNT 229 10^3/uL (150-450); RED CELL DISTRIBUTION WIDTH 17.7 % (11.5-14.0); SEGMENTED NEUTROPHILS % (AUTO) 60.4 % (42-78); TOTAL CELLS COUNTED % (AUTO) 100 %; WHITE BLOOD COUNT 7.3 10^3/uL (4.0-10.5)
[2019-06-09 16:23] LABS: ANISOCYTOSIS 1+; OVALOCYTES SLIGHT; PLATELET COMMENT ADEQUATE
[2019-06-09] MEDS ORDERED: HYDROXYZINE PAMOATE 50 MG CAPSULE PO PRN (16:42)
--- NOTE | 2019-06-09 16:59 | PDOC PROGRESS REPORT ---
Subjective Progress Note for:: 06/09/19 Subjective:: DANIA BARCLAY is a 58 year old male with a past medical history of bipolar, esophageal ulcer, Celina-Clemente tear, gastritis, duodenitis, portal hypertension, esophageal varices and episodic binge drinking admitted 06/08/2019 for alcoholic gastritis, hematemesis, and alcohol intoxication. The patient was seen on morning rounds. he was found resting in bed comfortably on room air. He was sleeping soundly and withdrew to touch and when I said his name loudly. He did not wake. Per nursing, patient was awake earlier with complaint of nausea, but no emesis. ROS otherwise limited. No concerns per nursing. Reason For Visit: ALCOHOL GASTRITIS Physical Exam Vital Signs: Temp Pulse Resp BP Pulse Ox 98.8 F 84 17 161/95 H 93 06/09/19 03:23 06/09/19 14:00 06/09/19 08:25 06/09/19 03:23 06/09/19 08:25 Intake & Output 06/08/19 06/09/19 06/10/19 06:59 06:59 06:59 Intake Total 1000 Output Total 0 Balance 0 1000 Weight 107.2 kg 107.2 kg General appearance: PRESENT: no acute distress, obese, well-developed, well- nourished Head exam: PRESENT: atraumatic, normocephalic Ear exam: PRESENT: normal external ear exam Mouth exam: PRESENT: moist, tongue midline Respiratory exam: PRESENT: clear to auscultation helen, symmetrical, unlabored. ABSENT: rales, rhonchi, wheezes Cardiovascular exam: PRESENT: RRR, +S1, +S2. ABSENT: diastolic murmur, rubs, systolic murmur Pulses: PRESENT: normal dorsalis pedis pul Vascular exam: PRESENT: normal capillary refill GI/Abdominal exam: PRESENT: normal bowel sounds, soft. ABSENT: distended Rectal exam: PRESENT: deferred Extremities exam: PRESENT: full ROM. ABSENT: clubbing, pedal edema Neurological exam: PRESENT: CN II-XII grossly intact, other - Sleeping soundly. ABSENT: motor sensory deficit Psychiatric exam: PRESENT: other - intoxicated Skin exam: PRESENT: dry, intact, warm. ABSENT: cyanosis, rash Results Laboratory Results: 06/09/19 08:11 06/08/19 06/08/19 06/08/19 18:06 18:06 18:58 WBC 11.3 H RBC 5.18 Hgb 13.6 Hct 41.0 MCV 79 L MCH 26.3 L MCHC 33.1 RDW 18.8 H Plt Count 319 Seg Neutrophils % 66.1 Sodium 143.3 Potassium 3.7 Chloride 104 Carbon Dioxide 22 Anion Gap 17 BUN 10 Creatinine 0.84 Est GFR ( Amer) > 60 Glucose 102 Calcium 8.7 Phosphorus Magnesium Total Bilirubin 0.4 AST 34 Alkaline Phosphatase 60 Ammonia 11.1 Total Protein 6.8 Albumin 3.9 Lipase 76.0 Urine Color Urine Appearance Urine pH Ur Specific [place] Urine Protein Urine Glucose (UA) Urine Ketones Urine Blood Urine Nitrite Ur Leukocyte Esterase Urine RBC (Auto) 06/08/19 06/09/19 06/09/19 19:24 00:32 08:11 WBC 10.2 RBC 4.86 Hgb 12.9 L Hct 38.8 MCV 80 MCH 26.6 L MCHC 33.3 RDW 19.1 H Plt Count 276 Seg Neutrophils % 68.2 Sodium 138.4 Potassium 4.1 Chloride 105 Carbon Dioxide 25 Anion Gap 8 BUN 10 Creatinine 0.90 Est GFR ( Amer) > 60 Glucose 88 Calcium 7.8 L Phosphorus 3.9 Magnesium 1.8 Total Bilirubin 0.6 AST 27 Alkaline Phosphatase 58 Ammonia Total Protein 6.0 L Albumin 3.2 L Lipase Urine Color STRAW Urine Appearance CLEAR Urine pH 9.0 Ur Specific [place] 1.008 Urine Protein 30 H Urine Glucose (UA) NEGATIVE Urine Ketones NEGATIVE Urine Blood MODERATE H Urine Nitrite NEGATIVE Ur Leukocyte Esterase NEGATIVE Urine RBC (Auto) 6 06/09/19 08:11 WBC 8.4 RBC 4.60 Hgb 12.2 L Hct 36.5 L MCV 80 MCH 26.5 L MCHC 33.4 RDW 18.3 H Plt Count 233 Seg Neutrophils % 63.2 Sodium Potassium Chloride Carbon Dioxide Anion Gap BUN Creatinine Est GFR ( Amer) Glucose Calcium Phosphorus Magnesium Total Bilirubin AST Alkaline Phosphatase Ammonia Total Protein Albumin Lipase Urine Color Urine Appearance Urine pH Ur Specific [place] Urine Protein Urine Glucose (UA) Urine Ketones Urine Blood Urine Nitrite Ur Leukocyte Esterase Urine RBC (Auto) Impressions: Abdomen/Pelvis CT 06/08/19 20:33 IMPRESSION: 1. Significant distal esophageal wall thickening/edema, consistent with acute esophagitis. There is a hiatal hernia, which likely is contributed to the esophagitis. EGD to evaluate for Angulo's esophagus and neoplasm should be considered. 2. Dilated common bile duct and slightly dilated intrahepatic bile ducts, new since 05/15/2019. Cannot exclude a distal common bile duct stone or stricture. Note that no gallstones were identified on the previous ultrasound. 3. Pancreatic head calcifications, suggesting prior pancreatitis. Pancreatic duct is slightly distended. 4. Colonic diverticulosis but no evidence for diverticulitis 5. Other chronic findings as described. Assessment and Plan - Diagnosis (1) Alcoholic gastritis with bleeding Qualifiers: Chronicity: unspecified Qualified Code(s): K29.21 - Alcoholic gastritis with bleeding Is this a current diagnosis for this admission?: Yes Plan: Patient is admitted to [facility] on continuous cardiac telemetry. Serial CBCs to monitor for acute blood loss anemia. Clear liquid diet. Antiemetics as needed. Proton pump inhibitor, consider Sandostatin (2) Hematemesis Qualifiers: Nausea presence: with nausea Qualified Code(s): K92.0 - Hematemesis Is this a current diagnosis for this admission?: Yes Plan: Secondary to #1 Evaluation management as above. (3) Alcohol abuse Is this a current diagnosis for this admission?: Yes Plan: IV banana bag. Valium scheduled and Ativan as needed Discharge planning consult for inpatient rehab (4) Alcohol intoxication Is this a current diagnosis for this admission?: Yes Plan: Serum EtOH 237. UDS negative. Supportive care; folic acid and thiamine supplementation. Scheduled Valium and as needed Ativan. Fall, seizure, aspiration precautions in anticipation of possible withdrawal (5) Portal hypertension with esophageal varices Is this a current diagnosis for this admission?: Yes Plan: Beta-micheline ordered, consider Sandostatin (6) Bipolar disorder Qualifiers: Active/Remission status: remission status unspecified Qualified Code(s): F31.9 - Bipolar disorder, unspecified Is this a current diagnosis for this admission?: Yes Plan: Resume home medications. - Time Time Spent with patient: 15-24 minutes Medications reviewed and adjusted accordingly: Yes Anticipated discharge: Home Within: within 48 hours
[2019-06-09] MEDS: OXCARBAZEPINE 150 MG TABLET PO SCH (17:47)
[2019-06-09] MEDS: BUSPIRONE HCL 10 MG TABLET PO SCH (21:23)
[2019-06-09] MEDS ORDERED: ATORVASTATIN CALCIUM 10 MG TABLET PO SCH (22:00)
[2019-06-09] MEDS ORDERED: OLANZAPINE 5 MG TABLET PO SCH (22:00)
[2019-06-09] MEDS ORDERED: (PENDING PHARMACY ID) (Clonidine Hcl [Clonidine Hcl Er] 0.1 MG) PO SCH (22:00)
[2019-06-09] MEDS ORDERED: DIVALPROEX SODIUM 500 MG TAB.SR.24H PO SCH (22:00)
[2019-06-09] MEDS ORDERED: CLONIDINE HCL 0.1 MG TABLET PO SCH (22:00)
[2019-06-09] MEDS ORDERED: NADOLOL 40 MG TABLET PO SCH (22:00)
[2019-06-09] MEDS ORDERED: THIAMINE HCL 100 MG, FOLIC ACID 1 MG in NORMAL SALINE 250 ML IV SCH (22:00)
[2019-06-09 23:54] LABS: ABSOLUTE BASOPHILS # (AUTO) 0.1 10^3/uL (0.0-0.2); ABSOLUTE EOSINOPHILS # (AUTO) 0.6 10^3/uL (0.0-0.6); ABSOLUTE LYMPHOCYTES (AUTO) 1.9 10^3/uL (0.5-4.7); ABSOLUTE MONOCYTES (AUTO) 0.7 10^3/uL (0.1-1.4); BASOPHILS % (AUTO) 1.1 % (0-2); EOSINOPHILS % (AUTO) 10.2 % (0-6); HEMATOCRIT 35.8 % (37.9-51.0); LYMPHOCYTES % (AUTO) 29.7 % (13-45); MEAN CORPUSCULAR HEMOGLOBIN 26.8 pg (27.0-33.4); MEAN CORPUSCULAR HGB CONC 33.5 g/dL (32.0-36.0); MEAN CORPUSCULAR VOLUME 80 fl (80-97); MONOCYTES % (AUTO) 10.7 % (3-13); PLATELET COUNT 220 10^3/uL (150-450); RED BLOOD COUNT 4.48 10^6/uL (4.35-5.55); RED CELL DISTRIBUTION WIDTH 17.4 % (11.5-14.0); SEGMENTED NEUTROPHILS % (AUTO) 48.3 % (42-78); TOTAL CELLS COUNTED % (AUTO) 100 %; WHITE BLOOD COUNT 6.2 10^3/uL (4.0-10.5)
[2019-06-10 00:14] LABS: TOXIC GRANULATION SLIGHT
[2019-06-10 00:15] LABS: ANISOCYTOSIS 1+; OVALOCYTES 1+; PLATELET COMMENT ADEQUATE; POIKILOCYTOSIS SLIGHT; TEAR DROP CELLS SLIGHT
[2019-06-10] MEDS: LORAZEPAM INJ 2 MG/1 ML VIAL IV PRN ×2 (01:06→08:31)
[2019-06-10] MEDS: PROMETHAZINE HCL INJ 25 MG/1 ML VIAL IV PRN (03:54)
[2019-06-10] MEDS: HEPARIN SOD (PORCINE) 5,000 UNIT/ML 1 ML VIAL SUBCUT SCH (05:09)
[2019-06-10] MEDS: DIAZEPAM INJ 10 MG/2 ML DISP.SYRIN IV SCH (05:10)
[2019-06-10 05:40] LABS: HEMATOCRIT 35.6 % (37.9-51.0); MEAN CORPUSCULAR HEMOGLOBIN 26.9 pg (27.0-33.4); MEAN CORPUSCULAR HGB CONC 33.6 g/dL (32.0-36.0); MEAN CORPUSCULAR VOLUME 80 fl (80-97); PLATELET COUNT 201 10^3/uL (150-450); RED BLOOD COUNT 4.45 10^6/uL (4.35-5.55); RED CELL DISTRIBUTION WIDTH 17.4 % (11.5-14.0); WHITE BLOOD COUNT 5.1 10^3/uL (4.0-10.5)
[2019-06-10 06:02] LABS: ANION GAP 9 (5-19); BLOOD UREA NITROGEN 7 mg/dL (7-20); CARBON DIOXIDE 21 mmol/L (22-30); CHLORIDE 108 mmol/L (98-107); GLUCOSE 92 mg/dL (75-110); POTASSIUM 3.9 mmol/L (3.6-5.0)
[2019-06-10] MEDS: IPRATROPIUM/ALBUTEROL 0.5-2.5 MG/3 ML AMPUL NEB SCH (08:15)
[2019-06-10] MEDS: NORMAL SALINE 100 ML with PANTOPRAZOLE SODIUM 80 MG IV PRN ×2 (08:35)
--- NOTE | 2019-06-10 09:24 | PDOC DISCHARGE SUMMARY ---
Impression - Admit/DC Date/PCP Admission Date/Primary Care Provider: 06/08/19 23:32 Discharge Date: 06/10/19 - Discharge Diagnosis (1) Alcoholic gastritis with bleeding Is this a current diagnosis for this admission?: Yes (2) Hematemesis Is this a current diagnosis for this admission?: Yes (3) Alcohol abuse Is this a current diagnosis for this admission?: Yes (4) Alcohol intoxication Is this a current diagnosis for this admission?: Yes (5) Portal hypertension with esophageal varices Is this a current diagnosis for this admission?: Yes (6) Bipolar disorder Is this a current diagnosis for this admission?: Yes - Additional Information Resuscitation Status: Full Code Discharge Diet: As Tolerated Discharge Activity: Activity As Tolerated Prescriptions: Promethazine HCl [Phenergan 25 mg Tablet] 25 mg PO Q8HP PRN #15 tablet PRN Reason: Home Medications: Buspirone HCl [Buspar 10 mg Tablet] 5 mg PO Q12 06/09/19 Clonidine HCl [Catapres 0.1 mg Tablet] 0.1 mg PO QHS 06/09/19 Divalproex Sodium [Depakote ER 500 mg Tab.sr] 500 mg PO QHS 06/09/19 Hydroxyzine Pamoate [Vistaril 50 mg Capsule] 50 mg PO Q6HP PRN 06/09/19 Lisinopril [Prinivil] 20 mg PO DAILY 06/09/19 Metoprolol Tartrate [Lopressor 25 mg Tablet] 25 mg PO Q12 06/09/19 Nadolol [Corgard 40 mg Tablet] 40 mg PO QHS 06/09/19 Olanzapine [Zyprexa 5 mg Tablet] 5 mg PO QHS 06/09/19 Oxcarbazepine [Trileptal 150 mg Tablet] 450 mg PO BID 06/09/19 Pantoprazole Sodium [Protonix [address] Tablet] 40 mg PO QHS 06/09/19 Pravastatin Sodium [Pravachol] 20 mg PO DAILY 06/09/19 Testosterone [Androgel] 1 pump TD DAILY 06/09/19 Venlafaxine HCl ER [Effexor Xr 75 mg Cap.sr] 75 mg PO DAILY 06/09/19 Promethazine HCl [Phenergan 25 mg Tablet] 25 mg PO Q8HP PRN #15 tablet 06/10/19 History of Present Illiness History of Present Illness: DANIA NING is a 58 year old male who presented to ER with medical history of bipolar disorder, esophageal ulcer, Celina-Clemente tear, gastritis, duodenitis, portal hypertension and esophageal varices after episodic binge drinking. Hospital Course Hospital Course: Patient was admitted on 06/10/2019 after an alcoholic binge for alcoholic gastritis, hematemesis and alcoholic intoxication. Patient was admitted to IMCU obtain serial CBCs which showed no drop in his hemoglobin. Patient was given IV fluids, rally bags and PRN Ativan. Patient showed no bleeding since admission. He is improved patient return home today. I will prescribe Phenergan 25 mill grams p.o. every 8 hours as needed for nausea and have patient return to ER for any further episodes of hematemesis. Patient will follow-up with primary care in 1 week. Physical Exam Vital Signs: Temp Pulse Resp BP Pulse Ox 97.4 F 64 16 131/92 H 100 06/10/19 08:20 06/10/19 08:20 06/10/19 08:20 06/10/19 08:20 06/10/19 08:20 Intake & Output 06/09/19 06/10/19 06/11/19 06:59 06:59 06:59 Intake Total 3984.2 100 Output Total 0 2000 Balance 0 1984.2 100 Weight 107.2 kg 104.9 kg General appearance: PRESENT: no acute distress, well-developed, well-nourished Neck exam: ABSENT: carotid bruit, JVD, lymphadenopathy, thyromegaly Respiratory exam: PRESENT: clear to auscultation helen. ABSENT: rales, rhonchi, wheezes Cardiovascular exam: PRESENT: RRR. ABSENT: diastolic murmur, rubs, systolic murmur Pulses: PRESENT: normal dorsalis pedis pul Vascular exam: PRESENT: normal capillary refill GI/Abdominal exam: PRESENT: normal bowel sounds, soft. ABSENT: distended, guarding, mass, organolmegaly, rebound, tenderness Extremities exam: PRESENT: full ROM. ABSENT: calf tenderness, clubbing, pedal edema Neurological exam: PRESENT: alert Psychiatric exam: PRESENT: appropriate affect, normal mood. ABSENT: homicidal ideation, suicidal ideation Skin exam: PRESENT: dry, intact, warm. ABSENT: cyanosis, rash Results Laboratory Results: WBC 5.1 10^3/uL (4.0-10.5) 06/10/19 05:03 RBC 4.45 10^6/uL (4.35-5.55) 06/10/19 05:03 Hgb 12.0 g/dL (13.5-17.0) L 06/10/19 05:03 Hct 35.6 % (37.9-51.0) L 06/10/19 05:03 MCV 80 fl (80-97) 06/10/19 05:03 MCH 26.9 pg (27.0-33.4) L 06/10/19 05:03 MCHC 33.6 g/dL (32.0-36.0) 06/10/19 05:03 RDW 17.4 % (11.5-14.0) H 06/10/19 05:03 Plt Count 201 10^3/uL (150-450) 06/10/19 05:03 Lymph % (Auto) 29.7 % (13-45) 06/09/19 23:24 [place] % (Auto) 10.7 % (3-13) 06/09/19 23:24 Eos % (Auto) 10.2 % (0-6) H 06/09/19 23:24 Baso % (Auto) 1.1 % (0-2) 06/09/19 23:24 Absolute Neuts (auto) 3.0 10^3/uL (1.7-8.2) 06/09/19 23:24 Absolute Lymphs (auto) 1.9 10^3/uL (0.5-4.7) 06/09/19 23:24 Absolute Monos (auto) 0.7 10^3/uL (0.1-1.4) 06/09/19 23:24 Absolute Eos (auto) 0.6 10^3/uL (0.0-0.6) 06/09/19 23: Absolute Basos (auto) 0.1 10^3/uL (0.0-0.2) 06/09/19 23:24 Seg Neutrophils % 48.3 % (42-78) 06/09/19 23:24 Toxic Granulation SLIGHT 06/09/19 23:24 Platelet Comment ADEQUATE 06/09/19 23:24 Poikilocytosis SLIGHT 06/09/19 23:24 Anisocytosis 1+ 06/09/19 23:24 Microcytosis SLIGHT 06/09/19 23:24 Tear Drop Cells SLIGHT 06/09/19 23:24 Ovalocytes 1+ 06/09/19 23:24 Schistocytes SLIGHT 06/08/19 18:06 PT 13.0 SEC (11.4-15.4) 06/08/19 18:06 INR 0.98 06/08/19 18:06 APTT 32.3 SEC (23.5-35.8) 06/08/19 18:06 Sodium 137.5 mmol/L (137-145) 06/10/19 05:03 Potassium 3.9 mmol/L (3.6-5.0) 06/10/19 05:03 Chloride 108 mmol/L (98-107) H 06/10/19 05:03 Carbon Dioxide 21 mmol/L (22-30) L 06/10/19 05:03 Anion Gap 9 (5-19) 06/10/19 05:03 BUN 7 mg/dL (7-20) 06/10/19 05:03 Creatinine 0.81 mg/dL (0.52-1.25) 06/10/19 05:03 Est GFR ( Amer) > 60 (>60) 06/10/19 05:03 Est GFR (MDRD) Non-Af > 60 (>60) 06/10/19 05:03 Glucose 92 mg/dL (75-110) 06/10/19 05:03 Calcium 8.0 mg/dL (8.4-10.2) L 06/10/19 05:03 Phosphorus 3.9 mg/dL (2.5-4.5) 06/09/19 08:11 Magnesium 1.8 mg/dL (1.6-2.3) 06/09/19 08:11 Total Bilirubin 0.6 mg/dL (0.2-1.3) 06/09/19 08:11 Direct Bilirubin 0.1 mg/dL (0.0-0.4) 06/09/19 08:11 Neonat Total Bilirubin Not Reportable 06/09/19 08:11 Neonat Direct Bilirubin Not Reportable 06/09/19 08:11 Neonat Indirect Bili Not Reportable 06/09/19 08:11 AST 27 U/L (17-59) 06/09/19 08:11 ALT 28 U/L (<50) 06/09/19 08:11 Alkaline Phosphatase 58 U/L (38-126) 06/09/19 08:11 Ammonia 11.1 umol/L (9-33) 06/08/19 18:58 Total Protein 6.0 g/dL (6.3-8.2) L 06/09/19 08:11 Albumin 3.2 g/dL (3.5-5.0) L 06/09/19 08:11 Lipase 76.0 U/L (23-300) 06/08/19 18:06 Urine Color STRAW 06/08/19 19:24 Urine Appearance CLEAR 06/08/19 19:24 Urine pH 9.0 (5.0-9.0) 06/08/19 19:24 Ur Specific [place] 1.008 06/08/19 19:24 Urine Protein 30 mg/dL (NEGATIVE) H 06/08/19 19:24 Urine Glucose (UA) NEGATIVE mg/dL (NEGATIVE) 06/08/19 19:24 Urine Ketones NEGATIVE mg/dL (NEGATIVE) 06/08/19 19:24 Urine Blood MODERATE (NEGATIVE) H 06/08/19 19:24 Urine Nitrite NEGATIVE (NEGATIVE) 06/08/19 19:24 Urine Bilirubin NEGATIVE (NEGATIVE) 06/08/19 19:24 Urine Urobilinogen NEGATIVE mg/dL (<2.0) 06/08/19 19:24 Ur Leukocyte Esterase NEGATIVE (NEGATIVE) 06/08/19 19:24 Urine RBC (Auto) 6 /HPF 06/08/19 19:24 Urine Ascorbic Acid NEGATIVE (NEGATIVE) 06/08/19 19:24 Urine Opiates Screen NEGATIVE 06/08/19 19:24 Urine Methadone Screen NEGATIVE 06/08/19 19:24 Ur Barbiturates Screen NEGATIVE 06/08/19 19:24 Ur Phencyclidine Scrn NEGATIVE 06/08/19 19:24 Ur Amphetamines Screen NEGATIVE 06/08/19 19:24 U Benzodiazepines Scrn NEGATIVE 06/08/19 19:24 Urine Cocaine Screen NEGATIVE 06/08/19 19:24 U Marijuana (THC) Screen NEGATIVE 06/08/19 19:24 Serum Alcohol 237 mg/dL (NONE DETECTED) 06/08/19 18:06 Impressions: Abdomen/Pelvis CT 06/08/19 20:33 IMPRESSION: 1. Significant distal esophageal wall thickening/edema, consistent with acute esophagitis. There is a hiatal hernia, which likely is contributed to the esophagitis. EGD to evaluate for Angulo's esophagus and neoplasm should be considered. 2. Dilated common bile duct and slightly dilated intrahepatic bile ducts, new since 05/15/2019. Cannot exclude a distal common bile duct stone or stricture. Note that no gallstones were identified on the previous ultrasound. 3. Pancreatic head calcifications, suggesting prior pancreatitis. Pancreatic duct is slightly distended. 4. Colonic diverticulosis but no evidence for diverticulitis 5. Other chronic findings as described. Plan Time Spent: Greater than 30 Minutes Stroke Is this a Stroke Patient?: No Acute Heart Failure - Is this a Heart Failure Patient?: No
[2019-06-10] MEDS ORDERED: (PENDING PHARMACY ID) (Lisinopril [Prinivil] 20 MG) PO SCH (10:00)
[2019-06-10] MEDS ORDERED: VENLAFAXINE HCL 75 MG CAP.SR.24H PO SCH (10:00)
[2019-06-10] MEDS ORDERED: LISINOPRIL 10 MG TABLET PO SCH (10:00)
[2019-06-10] MEDS: OXCARBAZEPINE 150 MG TABLET PO SCH (10:19)
[2019-06-10] MEDS: BUSPIRONE HCL 10 MG TABLET PO SCH (10:20)
[2019-06-10 12:13] VITALS: BP 136/98
[2019-06-10] MEDS ORDERED: ZIPRASIDONE HCL 20 MG CAPSULE PO ONE (12:45)
== END 2019-06-10 12:50 | disposition home or self-care (01) | DRG 378 ==
LOC: ER 17:44 → EH 23:32 → 3W 06-09 01:55
PROVIDERS: ADMIT Internal Medicine; ATTEND Internal Medicine
DX: K29.21 Alcoholic gastritis with bleeding (principal); K76.6 Portal hypertension; I85.10 Secondary esophageal varices without bleeding; K92.0 Hematemesis; F10.120 Alcohol abuse with intoxication, uncomplicated; E78.00 Pure hypercholesterolemia, unspecified; I10 Essential (primary) hypertension; K21.9 Gastro-esophageal reflux disease without esophagitis; F41.8 Other specified anxiety disorders; F43.10 Post-traumatic stress disorder, unspecified; F31.9 Bipolar disorder, unspecified; F17.210 Nicotine dependence, cigarettes, uncomplicated; Y90.7 Blood alcohol level of 200-239 mg/100 ml; Z79.899 Other long term (current) drug therapy
CPT/HCPCS: 36415; 74177; 80048; 80053; 80307; 81001; 82140; 83690; 83735; 84100; 85025; 85027; 85610; 85730; 96361; 96365; 96366; 96375; 96376; 99285; C9113; J1644; J2060; J2405; J2550; J3360; J3411; J3430; J3490; J7030; J7050; J7620